=== PATIENT | female | born 1930 | race Caucasian/White ===

== ENCOUNTER 2016-12-12 09:20 | Emergency (ER) | payer MEDICARE, BC ==
[2016-12-12 09:32] VITALS: RESP 20
[2016-12-12] MEDS ORDERED: SODIUM CHLORIDE 0.9% 500 ML IV STA (10:01)
--- NOTE | 2016-12-12 10:26 | ED ---
Abdominal Pain HPI - General Chief Complaint: Abdominal Pain Stated Complaint: dizziness Time Seen by Provider: 12/12/16 09:53 Source: patient, RN notes reviewed Mode of arrival: wheelchair Limitations: no limitations - History of Present Illness Initial Comments: 86-year-old female presents emergency Department with vague complaints. Patient states that she just does not feel right. She states that she cannot tell me what exactly is wrong. She states her stomach is upset in that she's had some chest pain but states not active chest pain. Patient states that she has no shortness of breath. She states she does feel lightheaded. Patient denies blurred vision, focal weakness, pain, trauma. Patient states that she called her doctor who told her to come here for evaluation. - Related Data Home Medications Medication Instructions Recorded Confirmed Aspirin 81 mg PO HS 10/29/14 12/12/16 Levothyroxine Sodium [Synthroid] 50 mcg PO DAILY 10/29/14 12/12/16 Omeprazole 40 mg PO AC-BRKFST 10/29/14 12/12/16 amLODIPine BESYLATE [Norvasc] 5 mg PO DAILY 10/29/14 12/12/16 Allergies Allergy/AdvReac Type Severity Reaction Status Date / Time Penicillins Allergy Unknown Verified 12/12/16 09:59 Sulfa (Sulfonamide Allergy Rash/Hives Verified 12/12/16 09:59 Antibiotics) Review of Systems ROS Statement: Those systems with pertinent positive or pertinent negative responses have been documented in the HPI. ROS Other: All systems not noted in ROS Statement are negative. Past Medical History Past Medical History: Hypertension Additional Past Medical History / Comment(s): breast ca History of Any Multi-Drug Resistant Organisms: None Reported Additional Past Surgical History / Comment(s): right mastectomy Past Psychological History: No Psychological Hx Reported Smoking Status: Never smoker Past Alcohol Use History: None Reported Past Drug Use History: None Reported General Exam Limitations: no limitations General appearance: alert, in no apparent distress Head exam: Present: atraumatic, normocephalic, normal inspection Eye exam: Present: normal appearance, PERRL, EOMI. Absent: scleral icterus, conjunctival injection, periorbital swelling ENT exam: Present: normal exam, normal oropharynx, mucous membranes moist, TM's normal bilaterally, normal external ear exam Neck exam: Present: normal inspection, full ROM. Absent: tenderness, meningismus, lymphadenopathy Respiratory exam: Present: normal lung sounds bilaterally. Absent: respiratory distress, wheezes, rales, rhonchi, stridor Cardiovascular Exam: Present: regular rate, normal rhythm, normal heart sounds. Absent: systolic murmur, diastolic murmur, rubs, gallop, clicks GI/Abdominal exam: Present: soft, normal bowel sounds. Absent: distended, tenderness, guarding, rebound, rigid Neurological exam: Present: alert, oriented X3, CN II-XII intact Skin exam: Present: warm, dry, intact, normal color. Absent: rash Course Vital Signs 12/12/16 09:28 Temperature 97 F L Pulse Rate 84 Respiratory 20 Rate Blood Pressure 148/70 O2 Sat by Pulse 98 Oximetry Medical Decision Making - Medical Decision Making 86-year-old female presented for vague symptoms states that she just does not feel right. CT, x-ray, EKG, lab work all within normal limits. Patient may be coming down with a viral illness or possible mild vertigo. We did discuss close follow-up and return parameters. Patient family agreed to plan. - Lab Data Result diagrams: 12/12/16 10:14 12/12/16 10:14 Lab Results 12/12/16 12/12/16 12/12/16 Range/Units 10:14 10:14 10:14 WBC 5.7 (3.8-10.6) k/uL RBC 4.22 (3.80-5.40) m/uL Hgb 12.8 (11.4-16.0) gm/dL Hct 38.0 (34.0-46.0) % MCV 90.0 (80.0-100.0) fL MCH 30.3 (25.0-35.0) pg MCHC 33.7 (31.0-37.0) g/dL RDW 12.7 (11.5-15.5) % Plt Count 205 (150-450) k/uL Neutrophils % 80 % Lymphocytes % 13 % Monocytes % 4 % Eosinophils % 1 % Basophils % 1 % Neutrophils # 4.6 (1.3-7.7) k/uL Lymphocytes # 0.7 L (1.0-4.8) k/uL Monocytes # 0.3 (0-1.0) k/uL Eosinophils # 0.1 (0-0.7) k/uL Basophils # 0.0 (0-0.2) k/uL PT (9.0-12.0) sec INR (<1.1) APTT (22.0-30.0) sec Sodium 134 L (137-145) mmol/L Potassium 4.1 (3.5-5.1) mmol/L Chloride 95 L (98-107) mmol/L Carbon Dioxide 28 (22-30) mmol/L Anion Gap 11 mmol/L BUN 17 (7-17) mg/dL Creatinine 0.80 (0.52-1.04) mg/dL Est GFR (MDRD) Af Amer >60 (>60 ml/min/1.73 sqM) Est GFR (MDRD) Non-Af >60 (>60 ml/min/1.73 sqM) Glucose 143 H (74-99) mg/dL Calcium 9.2 (8.4-10.2) mg/dL Magnesium 1.7 (1.6-2.3) mg/dL Total Bilirubin 0.6 (0.2-1.3) mg/dL AST 21 (14-36) U/L ALT 26 (9-52) U/L Alkaline Phosphatase 71 (38-126) U/L Total Creatine Kinase 62 (30-135) U/L CK-MB (CK-2) 1.6 (0.0-2.4) ng/mL CK-MB (CK-2) Rel Index 2.6 Troponin I <0.012 (0.000-0.034) ng/mL Total Protein 7.4 (6.3-8.2) g/dL Albumin 4.1 (3.5-5.0) g/dL 12/12/16 Range/Units 10:14 WBC (3.8-10.6) k/uL RBC (3.80-5.40) m/uL Hgb (11.4-16.0) gm/dL Hct (34.0-46.0) % MCV (80.0-100.0) fL MCH (25.0-35.0) pg MCHC (31.0-37.0) g/dL RDW (11.5-15.5) % Plt Count (150-450) k/uL Neutrophils % % Lymphocytes % % Monocytes % % Eosinophils % % Basophils % % Neutrophils # (1.3-7.7) k/uL Lymphocytes # (1.0-4.8) k/uL Monocytes # (0-1.0) k/uL Eosinophils # (0-0.7) k/uL Basophils # (0-0.2) k/uL PT 10.9 (9.0-12.0) sec INR 1.1 (<1.1) APTT 25.7 (22.0-30.0) sec Sodium (137-145) mmol/L Potassium (3.5-5.1) mmol/L Chloride (98-107) mmol/L Carbon Dioxide (22-30) mmol/L Anion Gap mmol/L BUN (7-17) mg/dL Creatinine (0.52-1.04) mg/dL Est GFR (MDRD) Af Amer (>60 ml/min/1.73 sqM) Est GFR (MDRD) Non-Af (>60 ml/min/1.73 sqM) Glucose (74-99) mg/dL Calcium (8.4-10.2) mg/dL Magnesium (1.6-2.3) mg/dL Total Bilirubin (0.2-1.3) mg/dL AST (14-36) U/L ALT (9-52) U/L Alkaline Phosphatase (38-126) U/L Total Creatine Kinase (30-135) U/L CK-MB (CK-2) (0.0-2.4) ng/mL CK-MB (CK-2) Rel Index Troponin I (0.000-0.034) ng/mL Total Protein (6.3-8.2) g/dL Albumin (3.5-5.0) g/dL 12/12/16 11:33 EKG performed at 10:09 normal sinus rhythm with a rate of 73 PA interval 134, QRS duration 92, QTC is QTC 382/420 Disposition Clinical Impression: Malaise, Fatigue Disposition: HOME SELF-CARE Condition: Stable Instructions: Fatigue (ED) Additional Instructions: Please return to the Emergency Department if symptoms worsen or any other concerns. Time of Disposition: 11:35
[2016-12-12 10:42] LABS: Basophils % (A) 1 %; CH 30.3; CHCM 33.7; Eosinophils # (A) 0.1 k/uL (0-0.7); Eosinophils % (A) 1 %; HDW 2.36; HGB 12.8 gm/dL (11.4-16.0); Luc # (Auto) 0.06; Luc % (Auto) 1; Lymphocytes # (A) 0.7 k/uL (1.0-4.8); Lymphocytes % (A) 13 %; MCH 30.3 pg (25.0-35.0); MCHC 33.7 g/dL (31.0-37.0); Mean Platelet Volume 7.2; Monocytes # (A) 0.3 k/uL (0-1.0); Monocytes % (A) 4 %; Neutrophils # (A) 4.6 k/uL (1.3-7.7); Neutrophils % (A) 80 %; RBC 4.22 m/uL (3.80-5.40); RDW 12.7 % (11.5-15.5); WBC 5.7 k/uL (3.8-10.6); WBC (Perox) 6.11
[2016-12-12 10:52] LABS: INR 1.1 (<1.1); Partial Thromboplastin Time 25.7 sec (22.0-30.0); Prothrombin Time 10.9 sec (9.0-12.0)
[2016-12-12 10:53] LABS: ALT 26 U/L (9-52); AST 21 U/L (14-36); Alkaline Phosphatase 71 U/L (38-126); Anion Gap 11 mmol/L; Blood Urea Nitrogen 17 mg/dL (7-17); Calcium 9.2 mg/dL (8.4-10.2); Carbon Dioxide 28 mmol/L (22-30); Chloride 95 mmol/L (98-107); Glucose 143 mg/dL (74-99); Magnesium 1.7 mg/dL (1.6-2.3); Non-African American GFR(MDRD) >60 (>60 ml/min/1.73 sqM); Potassium 4.1 mmol/L (3.5-5.1); Sodium 134 mmol/L (137-145); Total Bilirubin 0.6 mg/dL (0.2-1.3); Total Protein 7.4 g/dL (6.3-8.2)
[2016-12-12 11:08] LABS: Creatine Kinase 62 U/L (30-135)
--- NOTE | 2016-12-12 11:08 | CT ---
EXAMINATION TYPE: CT brain wo con DATE OF EXAM: 12/12/2016 10:59 AM COMPARISON: 09/11/2013 INDICATION: Dizziness, weakness DLP: 926.4 mGycm, Automated exposure control for dose reduction was used. CONTRAST: None CT of the brain is performed utilizing 3 mm thick sections through the posterior fossa and 3 mm thick sections through the remaining calvarium. Study is performed within 24 hours of arrival to the hosp ital. No abnormal hyperdensity is present to suggest an acute intracranial hemorrhage. No mass lesion is evident. No acute infarcts are evident. There is periventricular white matter hypodensity which is patchy to c onfluent. Findings can be compatible with chronic white matter ischemic changes. Ventricles and sulci are prominent for the patient age. Paranasal sinuses and mastoid air cells within the [id number] are clear. IMPRESSIONS: 1. Stable age-related atrophy. 2. Increasing chronic white matter ischemic changes from 2012.
[2016-12-12 11:21] LABS: Creatine Kinase MB 1.6 ng/mL (0.0-2.4); Troponin I <0.012 ng/mL (0.000-0.034)
--- NOTE | 2016-12-12 11:25 | XR ---
EXAMINATION TYPE: XR chest 2V DATE OF EXAM: 12/12/2016 11:13 AM COMPARISON: 10/05/16 HISTORY: Shortness of breath TECHNIQUE: Frontal and lateral views of the chest are obtained. FINDINGS: Scattered senescent parenchymal changes noted. Hyperinflation compatible with COPD. No evidence for infiltrate. No evidence for atelectasis. Heart size is stable. Mediastinal structures are stable and grossly unremarkable. No evidence for hilar prominence. Degenerative changes dorsal spine. IMPRESSION: 1. No evidence for acute pulmonary disease.
[2016-12-12 11:43] VITALS: BP 136/78; PULSE 70; TEMP 98.2
[2016-12-12 11:47] LABS: Appearance,Urine Clear (Clear); Bilirubin,Urine Negative (Negative); Glucose,Urine (UA) Negative (Negative); Ketones,Urine Negative (Negative); Leukocyte Esterase,Urine Negative (Negative); Nitrite,Urine Negative (Negative); PH, Urine 6.5 (5.0-8.0); Protein,Urine Negative (Negative); Specific Gravity,Urine 1.003 (1.001-1.035); UA Billing (MACRO vs. MICRO) CHEM; Urobilinogen,Urine <2.0 mg/dL (<2.0)
== END 2016-12-12 11:43 | disposition home or self-care (01) ==
LOC: EC 09:20
DX: R53.81 Other malaise (principal); R53.83 Other fatigue; R07.9 Chest pain, unspecified; R42 Dizziness and giddiness; I10 Essential (primary) hypertension; Z90.11 Acquired absence of right breast and nipple; Z79.899 Other long term (current) drug therapy; Z79.82 Long term (current) use of aspirin; Z88.2 Allergy status to sulfonamides; Z88.0 Allergy status to penicillin
CPT/HCPCS: 36415; 70450; 71020; 80053; 81003; 82550; 82553; 83735; 84484; 85025; 85610; 85730; 93005; 96360; 99284

== ENCOUNTER → 2017-01-13 | Outpatient (CLI) | payer MEDICARE, BC ==
--- NOTE | 2017-01-13 15:43 | XR ---
EXAMINATION TYPE: XR chest 2V DATE OF EXAM: 01/13/2017 3:26 PM COMPARISON: 12/12/2016 TECHNIQUE: PA and lateral views submitted. HISTORY: Cough FINDINGS: The lungs are clear and there is no pneumothorax, pleural effusion, or focal pneumonia. Hyperinflat ion suggests COPD. Coarsened interstitium noted. Findings stable. IMPRESSION: 1. No acute process. Correlate for COPD and chronic interstitial lung disease.
== END ==
LOC: RADXRMAIN 15:00
PROVIDERS: ATTEND Internal Medicine
DX: R05 Cough (principal)
CPT/HCPCS: 71020

== ENCOUNTER 2017-04-09 15:35 | Inpatient (IN) | payer MEDICARE, BC ==
[2017-04-09] MEDS ORDERED: ACETAMINOPHEN TAB 500 MG TAB PO STA (16:10)
--- NOTE | 2017-04-09 16:27 | XR ---
EXAMINATION TYPE: XR Hip LT and AP Pelvis DATE OF EXAM ORDERED: 04/09/2017 4:20 PM HISTORY: Pain. COMPARISON: None. FINDINGS: The bones are osteopenic likely on the basis of osteoporosis. There is a subcapital fractu re of the left hip with minimal angulation and foreshortening. No other acute fractures are seen. The re is degenerative change in the lower lumbar spine. IMPRESSION: SUBCAPITAL FRACTURE OF THE LEFT HIP.
[2017-04-09] MEDS ORDERED: SODIUM CHLORIDE 0.9% 1,000 ML IV STA (16:30)
--- NOTE | 2017-04-09 16:33 | ED ---
Fall HPI - General Chief Complaint: Fall Stated Complaint: Fall Time Seen by Provider: 04/09/17 16:03 Source: patient, RN notes reviewed Mode of arrival: wheelchair - History of Present Illness Initial Comments: 87 yo female presents to the emergency Department chief complaint of left hip pain. Patient states she tripped on the sidewalk and fell onto her left hip. Patient states she was able to get up by herself over she's having increased left hip pain. Patient states the pain is moderate. Patient states it's worse to movement. Patient states she did not hit her head there is no loss of consciousness. Patient denies any other injuries from the fall.Patient denies any recent fever, chills, shortness of breath, chest pain, back pain, abdominal pain, nausea vomiting, numbness or tingling, dysuria or hematuria, constipation or diarrhea, headaches or visual changes, or any other current symptoms. - Related Data Home Medications Medication Instructions Recorded Confirmed Aspirin 81 mg PO DAILY 10/29/14 04/09/17 Levothyroxine Sodium [Synthroid] 50 mcg PO DAILY 10/29/14 04/09/17 Omeprazole 40 mg PO AC-BRKFST 10/29/14 04/09/17 amLODIPine BESYLATE [Norvasc] 5 mg PO DAILY 10/29/14 04/09/17 Allergies Allergy/AdvReac Type Severity Reaction Status Date / Time Penicillins Allergy Unknown Verified 04/09/17 16:39 Sulfa (Sulfonamide Allergy Rash/Hives Verified 04/09/17 16:39 Antibiotics) Review of Systems ROS Statement: Those systems with pertinent positive or pertinent negative responses have been documented in the HPI. ROS Other: All systems not noted in ROS Statement are negative. Past Medical History Past Medical History: Hypertension Additional Past Medical History / Comment(s): breast ca History of Any Multi-Drug Resistant Organisms: None Reported Additional Past Surgical History / Comment(s): right mastectomy Past Psychological History: No Psychological Hx Reported Smoking Status: Never smoker Past Alcohol Use History: None Reported Past Drug Use History: None Reported General Exam - General Exam Comments Initial Comments: General: The patient is awake and alert, in no distress, and does not appear acutely ill. Neck: The neck is supple, there is no tenderness. Cardiovascular: There is a regular rate and rhythm. No murmur, rub or gallop is appreciated. Respiratory: Lungs are clear to auscultation, respirations are non-labored, breath sounds are equal. No wheezes, stridor, rales, or rhonchi. Musculoskeletal: Patient With a specific left upper extremity. Left knee and left ankle. Patient says the lateral aspect of the left hip with limited range of motion. Neurological: CN II-XII intact, There are no obvious motor or sensory deficits. Coordination appears grossly intact. Speech is normal. Skin: Skin is warm and dry and no rashes or lesions are noted. Psychiatric: Normal mood and affect. Limitations: physical limitation Course Vital Signs 04/09/17 15:47 Temperature 98.0 F Pulse Rate 91 Respiratory 20 Rate Blood Pressure 159/76 O2 Sat by Pulse 95 Oximetry Medical Decision Making - Medical Decision Making 87-year-old female presents with what appears to be a left hip fracture on x- ray. Patient has seen Dr. Mancilla in the past. At this time any Weber was contacted regarding the case today due to except the admission to Dr. Flores. Like her is to be consulted for medical clearance. Patient is in agreement with the plan. - Radiology Data Radiology results: report reviewed, image reviewed Disposition Clinical Impression: Fall, Subcapital fracture of left hip, Abrasion of left elbow Disposition: ADMITTED IP TO THIS [facility] Condition: Stable Referrals: Phillip Parrish MD [Primary Care Provider] - 1-2 days Time of Disposition: 17:13 Decision Date: 04/09/17 Decision Time: 17:13
--- NOTE | 2017-04-09 16:37 | XR ---
EXAMINATION TYPE: XR chest 1V DATE OF EXAM: 04/09/2017 4:25 PM COMPARISON: 01/13/2017 HISTORY: Cough TECHNIQUE: Single frontal view of the chest is obtained. FINDINGS: There is no heart failure nor confluent pneumonic infiltrate. There are no hilar masses. C ostophrenic angles are clear. There is slight coarsening of interstitial markings. IMPRESSION: Mild pulmonary fibrotic changes. No active cardiopulmonary disease. No change.
[2017-04-09] MEDS ORDERED: ONDANSETRON 4 MG/2 ML VIAL IVP PRN (17:13)
[2017-04-09] MEDS ORDERED: NALOXONE 0.4 MG/ML 1 ML VIAL IV PRN (17:13)
[2017-04-09 17:22] LABS: Basophils % (A) 0 %; CH 30.9; CHCM 33.3; Eosinophils # (A) 0.1 k/uL (0-0.7); Eosinophils % (A) 1 %; HCT 37.7 % (34.0-46.0); HDW 2.27; HGB 12.9 gm/dL (11.4-16.0); Luc # (Auto) 0.08; Luc % (Auto) 1; Lymphocytes # (A) 0.8 k/uL (1.0-4.8); Lymphocytes % (A) 10 %; MCH 31.9 pg (25.0-35.0); MCHC 34.2 g/dL (31.0-37.0); MCV 93.1 fL (80.0-100.0); Mean Platelet Volume 6.4; Monocytes # (A) 0.2 k/uL (0-1.0); Monocytes % (A) 3 %; Neutrophils # (A) 6.8 k/uL (1.3-7.7); Neutrophils % (A) 85 %; RBC 4.05 m/uL (3.80-5.40); RDW 13.4 % (11.5-15.5); WBC (Perox) 8.44
[2017-04-09 17:30] LABS: Partial Thromboplastin Time 22.6 sec (22.0-30.0); Prothrombin Time 10.5 sec (9.0-12.0)
[2017-04-09 17:35] LABS: ALT 32 U/L (9-52); AST 29 U/L (14-36); Alkaline Phosphatase 78 U/L (38-126); Anion Gap 9 mmol/L; Blood Urea Nitrogen 26 mg/dL (7-17); Calcium 9.7 mg/dL (8.4-10.2); Carbon Dioxide 28 mmol/L (22-30); Chloride 97 mmol/L (98-107); Glucose 123 mg/dL (74-99); Non-African American GFR(MDRD) 55 (>60 ml/min/1.73 sqM); Sodium 134 mmol/L (137-145); Total Bilirubin 0.7 mg/dL (0.2-1.3); Total Protein 7.8 g/dL (6.3-8.2)
[2017-04-09] MEDS: HYDROcodone/APAP 5-325MG 1 EACH TAB PO PRN ×2 (18:21→22:39)
[2017-04-09 23:00] VITALS: BMI 17.8
[2017-04-10] MEDS: MORPHINE SULFATE 4 MG/ML SYRINGE IV PRN (03:05)
[2017-04-10] MEDS: LEVOTHYROXINE 50 MCG TAB PO SCH (05:25)
[2017-04-10] MEDS: amLODIPine 5 MG TAB PO SCH (07:56)
[2017-04-10] MEDS: PANTOPRAZOLE 40 MG TABLET PO SCH (07:56)
--- NOTE | 2017-04-10 08:29 | P.HPOR ---
History of Present Illness H&P Date: 04/10/17 Chief Complaint: Left hip pain This is an 87-year-old female who was admitted through the emergency department on 04/09/2017 after falling and sustaining injury to her left hip. On exam and x-ray in the emergency department she is found to have a subcapital fracture of the left hip. She is admitted to our service for surgical intervention and care. Past Medical History Past Medical History: Hypertension Additional Past Medical History / Comment(s): breast ca History of Any Multi-Drug Resistant Organisms: None Reported Past Surgical History: Appendectomy Additional Past Surgical History / Comment(s): right mastectomy Additional Past Anesthesia/Blood Transfusion Reaction / Comment(s): has a difficult time coming awake after sx Past Psychological History: No Psychological Hx Reported Smoking Status: Never smoker Past Alcohol Use History: None Reported Past Drug Use History: None Reported Medications and Allergies Home Medications Medication Instructions Recorded Confirmed Type Aspirin 81 mg PO DAILY 10/29/14 04/09/17 History Levothyroxine Sodium [Synthroid] 50 mcg PO DAILY 10/29/14 04/09/17 History Omeprazole 40 mg PO AC-BRKFST 10/29/14 04/09/17 History amLODIPine BESYLATE [Norvasc] 5 mg PO DAILY 10/29/14 04/09/17 History Allergies Allergy/AdvReac Type Severity Reaction Status Date / Time Penicillins Allergy Unknown Verified 04/09/17 16:39 Sulfa (Sulfonamide Allergy Rash/Hives Verified 04/09/17 16:39 Antibiotics) Physical Examination This is a pleasant 87-year-old female in no acute distress. She is alert and oriented 3 exam of the head and neck reveal no obvious deformities. Patient has full cervical spine motion without difficulty or pain. There is no pain on palpation about the cervical spine or paraspinal musculature. Exam of the upper extremities reveals no areas of swelling or deformity. She has full shoulder, elbow, wrist and finger motion without difficulty or pain. There is a small abrasion over the left elbow. Neurovascular status to the upper extremities is intact. Exam the lower extremities reveals mild shortening and external rotation of the left hip. Patient has full range of motion of the foot and ankle without difficulty or pain. There is pain with any motion to the left hip. Neurovascular status to the lower extremities is intact. Results X-rays of the pelvis and left hip reveal an impacted femoral neck fracture and mild valgus. No other fractures identified. - Labs Labs: Abnormal Lab Results - Last 24 Hours (Table) 04/09/17 04/09/17 Range/Units 17:10 17:10 Lymphocytes # 0.8 L (1.0-4.8) k/uL Sodium 134 L (137-145) mmol/L Chloride 97 L (98-107) mmol/L BUN 26 H (7-17) mg/dL Glucose 123 H (74-99) mg/dL H & H 04/09/17 Range/Units 17:10 Hgb 12.9 (11.4-16.0) gm/dL Hct 37.7 (34.0-46.0) % Coagulation 04/09/17 Range/Units 17:10 INR 1.0 (<1.1) Result Diagrams: 04/09/17 17:10 04/09/17 17:10 Assessment and Plan (1) Abrasion of left elbow Status: Acute (2) Fall Status: Acute (3) Subcapital fracture of left hip Status: Acute Plan: The clinical and x-ray findings are discussed the patient. It is recommended that she undergo hemiarthroplasty of the left hip. The surgical procedures discussed in detail including possible risks and outcomes of surgery. She will most likely will be a candidate for inpatient rehab postoperatively. After discussion and consideration patient elects to proceed with hemiarthroplasty left hip.
[2017-04-10] MEDS: SODIUM CHLORIDE 0.9% 1,000 ML IV SCH ×2 (11:06→23:09)
[2017-04-10 12:01] LABS: Appearance,Urine Clear (Clear); Bilirubin,Urine Negative (Negative); Glucose,Urine (UA) Negative (Negative); Ketones,Urine Negative (Negative); Leukocyte Esterase,Urine Negative (Negative); Nitrite,Urine Negative (Negative); PH, Urine 6.5 (5.0-8.0); Protein,Urine Trace (Negative); Specific Gravity,Urine 1.012 (1.001-1.035); UA Billing (MACRO vs. MICRO) CHEM; Urobilinogen,Urine <2.0 mg/dL (<2.0)
[2017-04-10] MEDS ORDERED: CYANOCOBALAMIN 1,000 MCG/ML 1 ML VIAL IM ONE (15:00)
[2017-04-10] MEDS: HYDROcodone/APAP 5-325MG 1 EACH TAB PO PRN ×2 (15:14→22:01)
--- NOTE | 2017-04-10 17:27 | P.CONS ---
History of Present Illness - Reason for Consult Consult date: 04/10/17 Medical management Requesting physician: Serg Wyman - Chief Complaint Left hip fracture after a fall - History of Present Illness Is a pleasant 87-year-old lady patient of Dr. Parrish. She has underlying history of hypertension hypothyroidism with decreased hearing, who was previously well independent, lives at home on home, admitted emergency room after she tripped and had fallen in the sidewalk, patient was returning up pull we can when she tripped and fell the sidewalk landing on her left side. She sustained a left subcapital fracture involving left hip, minimal angulation and foreshortening no other pelvic structures noted We've requested EKG for perioperative clearance, EKG shows bundle branch block and inferior T-wave changes, BNP troponins were requested, imaging studies with chest x-ray showed pulmonary fibrotic changes with no active cardiopulmonary disease no change from previous patient clinically is asymptomatic with regards to heart, however this EKG is new compared to November 2016 in view of this, we' ve requested cardiology for preoperative clearance, were anticipating surgery on 04/11/2017 left hemiarthroplasty is recommended Review of Systems Constitutional: Reports as per HPI, Denies anorexia, Denies chills, Denies chronic headaches, Denies chronic pain, Denies daytime sleepiness, Denies fatigue, Denies fever, Denies lethargy, Denies malaise, Denies night sweats, Denies poor appetite, Denies sweats, Denies weakness, Denies weight gain, Denies weight loss Ears, nose, mouth and throat: Reports as per HPI, Denies ant. neck pain, Denies bleeding gums, Denies dental pain, Denies dysphagia, Denies epistaxis, Denies headache, Denies hoarseness, Denies mouth pain, Denies nasal congestion, Denies nasal discharge, Denies neck fullness/pressure, Denies neck lump, Denies nose pain, Denies odynophagia, Denies post-nasal drip, Denies sinus pain, Denies sinus pressure, Denies swelling in mouth, Denies swelling in throat, Denies sore throat, Denies vertigo, Denies voice changes Cardiovascular: Reports as per HPI, Denies chest pain, Denies claudication, Denies decreased exercise tolerance, Denies dyspnea on exertion, Denies edema, Denies high blood pressure, Denies irregular heart beat, Denies leg edema, Denies lightheadedness, Denies orthopnea, Denies palpitations, Denies paroxysmal nocturnal dyspnea, Denies phlebitis, Denies rapid heart beat, Denies shortness of breath, Denies syncope Respiratory: Reports as per HPI, Denies congestion, Denies cough, Denies cough with sputum, Denies dyspnea, Denies excessive sputum, Denies hemoptysis, Denies home oxygen, Denies pain, Denies pain on inspiration, Denies pleurisy, Denies respiratory infections, Denies sleep apnea, Denies snoring, Denies wheezing Gastrointestinal: Reports as per HPI, Denies abdominal pain, Denies belching, Denies bloating, Denies BRBPR, Denies change in bowel habits, Denies coffee ground emesis, Denies constipation, Denies diarrhea, Denies dyspepsia, Denies early satiety, Denies excessive gas, Denies heartburn, Denies hematemesis, Denies hematochezia, Denies indigestion, Denies jaundice, Denies lactose intolerance, Denies loss of appetite, Denies melena, Denies nausea, Denies vomiting Genitourinary: Reports as per HPI, Denies abnormal vaginal bleeding, Denies decreased libido, Denies difficulty conceiving, Denies difficulty voiding, Denies dysmenorrhea, Denies dyspareunia, Denies dysuria, Denies flank pain, Denies genital sores, Denies hematuria, Denies hot flashes, Denies incomplete emptying, Denies kidney stones, Denies menorrhagia, Denies mixed incontinence, Denies nocturia, Denies pelvic pain, Denies post void dribbling, Denies , Denies prolapse symptoms, Denies stress incontinence, Denies urge incontinence , Denies urgency, Denies urinary frequency, Denies vaginal discharge, Denies vaginal dryness, Denies vaginal itching, Denies vaginal odor Menstruation: Reports as per HPI, Denies amenorrhea, Denies amenorrhea on BC, Denies currently menstrual, Denies cycle < 21 days, Denies cycle > 35 days, Denies cycle variable, Denies menses 1-7 days, Denies menses 8 or > days, Denies menses variable, Denies period heavy, Denies period light, Denies period normal, Denies period spotting, Denies post hysterectomy, Denies postmenopausal , Denies premenarcheal Musculoskeletal: Reports as per HPI, Reports fractures, Reports gait dysfunction , Reports limitation of motion, Reports shooting leg pain Integumentary: Reports as per HPI, Denies acne, Denies boils, Denies brittle nails, Denies change in hair/nails, Denies color changes, Denies darkening of skin, Denies depigmentation, Denies dryness, Denies foot/leg ulcers, Denies growths, Denies hirsutism, Denies lesions, Denies onychomycosis, Denies pruritus , Denies rash, Denies sores, Denies striae, Denies unusual bruising, Denies wounds Neurological: Reports as per HPI, Denies aphasia, Denies ataxia, Denies balance difficulties, Denies burning pain, Denies change in mentation, Denies change in smell/taste, Denies change in speech, Denies confusion, Denies convulsions, Denies double vision, Denies gait dysfunction, Denies head injury, Denies headaches, Denies hearing difficulties, Denies lack of coordination, Denies loss of vision, Denies memory loss, Denies migraines, Denies motor disturbance, Denies numbness, Denies paralysis, Denies paresthesias, Denies seizures, Denies sensory deficit, Denies spasticity, Denies syncope, Denies tic, Denies tingling , Denies transient paralysis, Denies tremors, Denies vertigo, Denies weakness, Denies visual changes Psychiatric: Reports as per HPI, Denies anhedonia, Denies anxiety, Denies anxiety attacks, Denies change in appetite, Denies change in libido, Denies change in sleep habits, Denies confusion, Denies depression, Denies difficulty concentrating, Denies disorientation, Denies hallucinations, Denies hopelessness , Denies hypersomnia, Denies insomnia, Denies irritability, Denies memory loss, Denies mood swings, Denies paranoia, Denies sadness/tearfulness, Denies sleep disturbances, Denies suicidal ideation Endocrine: Reports as per HPI, Denies cold intolerance, Denies deepening of the voice, Denies excessive sweating, Denies excessive thirst, Denies fatigue, Denies flushing, Denies heat intolerance, Denies high blood sugars, Denies increase in ring/shoe/hat size, Denies low blood sugars, Denies nocturia, Denies palpitations, Denies polydipsia, Denies polyphagia, Denies polyuria, Denies proptosis, Denies recent glucocorticoid use, Denies thyroid mass, Denies weight change Hematologic/Lymphatic: Reports as per HPI, Denies easy bleeding, Denies easy bruising, Denies lymphadenopathy, Denies lymphedema, Denies thrombophilia Allergic/Immunologic: Reports as per HPI, Denies allergic rhinitis, Denies anaphylaxis, Denies angioedema, Denies gluten intolerance, Denies persistent infections, Denies seasonal allergies, Denies urticaria, Denies wheezing Past Medical History Past Medical History: Hypertension, Osteoarthritis (OA), Thyroid Disorder Additional Past Medical History / Comment(s): breast ca History of Any Multi-Drug Resistant Organisms: None Reported Past Surgical History: Appendectomy Additional Past Surgical History / Comment(s): right mastectomy Additional Past Anesthesia/Blood Transfusion Reaction / Comm: has a difficult time coming awake after sx Past Psychological History: No Psychological Hx Reported Smoking Status: Never smoker Past Alcohol Use History: None Reported Past Drug Use History: None Reported - Past Family History Father History Unknown: Yes (Ischemic bowel) Mother Family Medical History: No Reported History Brother(s) History Unknown: Yes (4 brothers, history off COPD heart disease, alcoholism, one brother with leukemia) Sister(s) History Unknown: Yes (6 sisters are one alive, has GI cancer, other for his has fractures of she processes CAD) Daughter(s) History Unknown: Yes (No children sawDrs.) Medications and Allergies Home Medications Medication Instructions Recorded Confirmed Type Aspirin 81 mg PO DAILY 10/29/14 04/09/17 History Levothyroxine Sodium [Synthroid] 50 mcg PO DAILY 10/29/14 04/09/17 History Omeprazole 40 mg PO AC-BRKFST 10/29/14 04/09/17 History amLODIPine BESYLATE [Norvasc] 5 mg PO DAILY 10/29/14 04/09/17 History Allergies Allergy/AdvReac Type Severity Reaction Status Date / Time Penicillins Allergy Unknown Verified 04/09/17 16:39 Sulfa (Sulfonamide Allergy Rash/Hives Verified 04/09/17 16:39 Antibiotics) Physical Exam Vitals: Vital Signs Temp Pulse Pulse Resp BP BP BP 04/10/17 15:44 80 16 04/10/17 15:00 98.2 F 80 16 153/73 04/10/17 08:00 75 16 04/10/17 07:00 98.6 F 75 16 165/76 04/10/17 02:33 98.1 F 71 16 144/73 04/09/17 20:00 97.6 F 20 147/83 04/09/17 18:44 98.1 F 91 18 129/75 04/09/17 18:12 97.2 F L 92 17 175/81 Pulse Ox 04/10/17 15:44 04/10/17 15:00 94 L 04/10/17 08:00 04/10/17 07:00 96 04/10/17 02:33 95 04/09/17 20:00 92 L 04/09/17 18:44 97 04/09/17 18:12 94 L Intake and Output 04/10/17 04/10/17 04/10/17 06:59 14:59 22:59 Intake Total 880 Output Total 650 500 Balance 230 -500 Intake: Intake, IV Titration 880 Amount Sodium Chloride 0.9% 1, 880 000 ml @ 80 mls/hr IV . [id number] STA Rx#:[id number] Output: Urine 650 500 Other: Voiding Method Indwelling Catheter Indwelling Catheter Weight 50.126 kg Patient Weight 04/11/17 06:59 Weight 50.126 kg - Constitutional General appearance: cooperative, no acute distress, thin - EENT Eyes: anicteric sclerae, edentulous, EOMI, PERRLA, normal appearance ENT: hearing grossly normal, NA/AT, normal oropharynx - Neck Neck: no lymphadenopathy, normal ROM, no other, no rigidity, no stridor, no thyromegaly - Respiratory Respiratory: bilateral: CTA, negative: dullness, rales, rhonchi, wheezing - Cardiovascular Rhythm: regular Heart sounds: normal: S1, S2 Abnormal Heart Sounds: no systolic murmur, no diastolic murmur, no rub, no S3 Gallop, no S4 Gallop, no click, no other - Gastrointestinal General gastrointestinal: normal bowel sounds, soft - Integumentary Integumentary: normal, normal turgor - Neurologic Neurologic: CNII-XII intact - Musculoskeletal Musculoskeletal: strength equal bilaterally - Psychiatric Psychiatric: A&O x's 3, appropriate affect, intact judgment & insight Results CBC & Chem 7: 04/09/17 17:10 04/09/17 17:10 Labs: Abnormal Lab Results - Last 24 Hours (Table) 04/09/17 04/09/17 04/10/17 Range/Units 17:10 17:10 10:15 Lymphocytes # 0.8 L (1.0-4.8) k/uL Sodium 134 L (137-145) mmol/L Chloride 97 L (98-107) mmol/L BUN 26 H (7-17) mg/dL Glucose 123 H (74-99) mg/dL Troponin I (0.000-0.034) ng/mL Urine Protein Trace H (Negative) 04/10/17 Range/Units 15:44 Lymphocytes # (1.0-4.8) k/uL Sodium (137-145) mmol/L Chloride (98-107) mmol/L BUN (7-17) mg/dL Glucose (74-99) mg/dL Troponin I 0.105 H* (0.000-0.034) ng/mL Urine Protein (Negative) Laboratory Results WBC 8.0 k/uL (3.8-10.6) 04/09/17 17:10 RBC 4.05 m/uL (3.80-5.40) 04/09/17 17:10 Hgb 12.9 gm/dL (11.4-16.0) 04/09/17 17:10 Hct 37.7 % (34.0-46.0) 04/09/17 17:10 MCV 93.1 fL (80.0-100.0) 04/09/17 17:10 MCH 31.9 pg (25.0-35.0) 04/09/17 17:10 MCHC 34.2 g/dL (31.0-37.0) 04/09/17 17:10 RDW 13.4 % (11.5-15.5) 04/09/17 17:10 Plt Count 223 k/uL (150-450) 04/09/17 17:10 Neutrophils % 85 % 04/09/17 17:10 Lymphocytes % 10 % 04/09/17 17:10 Monocytes % 3 % 04/09/17 17:10 Eosinophils % 1 % 04/09/17 17:10 Basophils % 0 % 04/09/17 17:10 Neutrophils # 6.8 k/uL (1.3-7.7) 04/09/17 17:10 Lymphocytes # 0.8 k/uL (1.0-4.8) L 04/09/17 17:10 Monocytes # 0.2 k/uL (0-1.0) 04/09/17 17:10 Eosinophils # 0.1 k/uL (0-0.7) 04/09/17 17:10 Basophils # 0.0 k/uL (0-0.2) 04/09/17 17:10 PT 10.5 sec (9.0-12.0) 04/09/17 17:10 INR 1.0 (<1.1) 04/09/17 17:10 APTT 22.6 sec (22.0-30.0) 04/09/17 17:10 Sodium 134 mmol/L (137-145) L 04/09/17 17:10 Potassium 4.0 mmol/L (3.5-5.1) 04/09/17 17:10 Chloride 97 mmol/L (98-107) L 04/09/17 17:10 Carbon Dioxide 28 mmol/L (22-30) 04/09/17 17:10 Anion Gap 9 mmol/L 04/09/17 17:10 BUN 26 mg/dL (7-17) H 04/09/17 17:10 Creatinine 0.95 mg/dL (0.52-1.04) 04/09/17 17:10 Est GFR (MDRD) Af Amer >60 (>60 ml/min/1.73 sqM) 04/09/17 17:10 Est GFR (MDRD) Non-Af 55 (>60 ml/min/1.73 sqM) 04/09/17 17:10 Glucose 123 mg/dL (74-99) H 04/09/17 17:10 Calcium 9.7 mg/dL (8.4-10.2) 04/09/17 17:10 Total Bilirubin 0.7 mg/dL (0.2-1.3) 04/09/17 17:10 AST 29 U/L (14-36) 04/09/17 17:10 ALT 32 U/L (9-52) 04/09/17 17:10 Alkaline Phosphatase 78 U/L (38-126) 04/09/17 17:10 Creatine Kinase 82 U/L (30-135) 04/10/17 15:44 Troponin I 0.105 ng/mL (0.000-0.034) H* 04/10/17 15:44 NT-Pro-B Natriuret Pep 836 pg/mL 04/10/17 15:44 Total Protein 7.8 g/dL (6.3-8.2) 04/09/17 17:10 Albumin 4.5 g/dL (3.5-5.0) 04/09/17 17:10 Urine Color Light Yellow 04/10/17 10:15 Urine Appearance Clear (Clear) 04/10/17 10:15 Urine pH 6.5 (5.0-8.0) 04/10/17 10:15 Ur Specific [place] 1.012 (1.001-1.035) 04/10/17 10:15 Urine Protein Trace (Negative) H 04/10/17 10:15 Urine Glucose (UA) Negative (Negative) 04/10/17 10:15 Urine Ketones Negative (Negative) 04/10/17 10:15 Urine Blood Negative (Negative) 04/10/17 10:15 Urine Nitrite Negative (Negative) 04/10/17 10:15 Urine Bilirubin Negative (Negative) 04/10/17 10:15 Urine Urobilinogen <2.0 mg/dL (<2.0) 04/10/17 10:15 Ur Leukocyte Esterase Negative (Negative) 04/10/17 10:15 Blood Type O Positive 04/09/17 17:10 Blood Type Recheck No 04/09/17 17:10 Antibody Screen NEGATIVE 04/09/17 17:10 Spec Expiration Date 04/12/2017 - 85404/09/17 17:10 Assessment and Plan Plan: 1. Acute left subcapital hip fracture after traumatic fall, patient currently would require a left hemiarthroplasty, however in view off the abnormal EKG that was noted which is new compared to May 2017, T-wave inversions noted inferior leads, cardiology was requested along with troponins. BNP is normal, echo cardiogram was requested, should be a class 2-3 anesthesia classification risk, involving an orthopedic surgery, CPK would be a performed to evaluate for rhabdomyolysis. Urinalysis negative for any urinary tract infection, 2. Abnormal EKG with T-wave inversion inferior leads, new compared to previous chin Y 2016, cardiology was requested to see along with preoperative clearance 3. Hypertension currently stable on Norvasc 5 mg daily 4. Hypothyroidism on Synthroid 50 g daily 5. GI prophylaxis and DVT prophylaxis, heparin 5000 units every 12 which would be given and held 12 hours prior to surgery, patient's on Protonix maintenance 6. Discharge planning anticipate discharge to skilled ECF patient lives alone, patient will be needing physical therapy and OT postsurgery
[2017-04-10] MEDS: HEPARIN SODIUM,PORCINE 5,000 UNIT/ML 1 ML VIAL SQ SCH (20:41)
[2017-04-11] MEDS: MORPHINE SULFATE 4 MG/ML SYRINGE IV PRN ×5 (02:35→20:21)
[2017-04-11] MEDS: amLODIPine 5 MG TAB PO SCH (07:57)
[2017-04-11] MEDS: LEVOTHYROXINE 50 MCG TAB PO SCH (07:57)
[2017-04-11] MEDS: PANTOPRAZOLE 40 MG TABLET PO SCH (07:57)
[2017-04-11] MEDS: HEPARIN SODIUM,PORCINE 5,000 UNIT/ML 1 ML VIAL SQ SCH (07:58)
[2017-04-11] MEDS ORDERED: IV FLUID CONTINUATION 500 ML IV ONE (09:46)
--- NOTE | 2017-04-11 10:03 | CONS ---
DATE OF CONSULTATION: Mrs. Pratt is an 87-year-old female who is seen for preoperative evaluation. This patient's medical records reviewed. This patient came to the emergency room yesterday with a complaint of left hip pain. She tripped on the sidewalk and fell on her left hip. She did not lose consciousness. She was able to get up by herself. This patient has a history of hypertension and has been having intermittent episodes of chest pain, which may be suggestive of angina, but she has been treated medically. There is no previous history of myocardial infarction. Patient is physically active and functionally independent. There is no history of congestive cardiac failure. Denies any history of orthopnea or PND. There is no prior history of stroke or kidney problem. The EKG showed evidence of right bundle branch block with nonspecific T wave changes, which are unchanged from the previous EKG. The troponins were borderline elevated without any significant rise and fall. Past medical history includes a history of hypertension, right mastectomy. No history of smoking. Review of systems is otherwise unremarkable. Patient's home medications include aspirin, omeprazole, amlodipine 5 mg daily and Synthroid 50 mcg daily. Physical examination at present reveals an 87-year-old female who is alert and awake and does not appear to be in any acute distress. In the emergency room, patient's vital signs stable with oxygen saturation of 95%. The patient's blood pressure now is 145/78 mmHg, oxygen saturation is 95%. Head/ENT examination is negative. Neck is supple. There is no increase in jugular venous pressure. Both the carotid pulses are felt. There is no bruit. Chest is symmetrical. HEART: The PMI is not felt. First and second heart sounds are normal. There is no evidence of any murmur. Lungs are clinically clear to auscultation and percussion. Abdomen is soft. Liver and spleen are not enlarged. EXTREMITIES: Peripheral pulsations are 2+. EKG shows normal sinus rhythm with right bundle branch block and nonspecific T wave changes. EKG is unchanged from before. Electrolytes are normal. Patient's creatinine is 0.95. Random blood sugar was 123. Three sets of troponins are 0.105, 0.138 and 0.129. FINAL IMPRESSION: This patient is admitted with left hip pain. Patient has a history of hypertension. Clinically, there is no evidence of any overt congestive cardiac failure. Patient's EKG does not show any acute ischemic changes and patient did not have any symptoms suggestive of acute coronary syndrome. There is a mild rise in the troponin without any significant rise and fall and this is not suggestive of acute coronary syndrome. It could be secondary to supply and demand mismatch. Patient's proBNP level is normal. Patient's echocardiogram does not show any wall motion abnormality. Left ventricular systolic function is normal. Patient does carry increased risk of surgery at this age but there is no absolute contraindications. The risks and benefits were fully discussed with the family members and we can proceed with the surgery. We will recommend to monitor the patient's blood pressure and oxygen saturation very closely in the postop period.
[2017-04-11] MEDS ORDERED: PROPOFOL 10 MG/ML 20 ML VIAL IV ONE (10:33)
[2017-04-11] MEDS ORDERED: TRANEXAMIC ACID 1,000 MG/10 ML VIAL ONE (10:33)
[2017-04-11] MEDS ORDERED: SODIUM CHLORIDE 0.9% 100 ML BAG ONE (10:33)
[2017-04-11] MEDS ORDERED: ePHEDrine 50 MG/ML 1 ML AMP ONE (10:33)
[2017-04-11] MEDS ORDERED: ONDANSETRON 4 MG/2 ML VIAL ONE (10:33)
[2017-04-11] MEDS ORDERED: fentaNYL (PF) 50 MCG/ML 2 ML AMP ONE (10:33)
[2017-04-11] MEDS ORDERED: SODIUM CHLORIDE 0.9% 50 ML with CLINDAMYCIN 600 MG IV ONE ×2 (10:58)
[2017-04-11] MEDS ORDERED: TRANEXAMIC ACID 1,000 MG in SODIUM CHLORIDE 0.9% 100 ML IVPB ONE (11:14)
[2017-04-11] MEDS ORDERED: LACTATED RINGERS 1,000 ML IV ONE (11:23)
[2017-04-11] MEDS ORDERED: ceFAZolin 1,000 MG in SODIUM CHLORIDE 0.9% 1,000 ML IRRIGATION ONE (11:24)
--- NOTE | 2017-04-11 13:16 | XR ---
EXAMINATION TYPE: XR Hip Limited LT DATE OF EXAM: 04/11/2017 1:12 PM COMPARISON: NONE HISTORY: Postop left hip TECHNIQUE: One view submitted. FINDINGS: There is a prosthetic hip in near anatomic alignment. There is soft tissue edema and emphysema. IMPRESSION: 1. Postoperative change. Appears in near-anatomic alignment.
[2017-04-11] MEDS ORDERED: VANCOMYCIN 750 MG in SODIUM CHLORIDE 0.9% 250 ML IVPB ONE (14:30)
--- NOTE | 2017-04-11 15:32 | P.PN ---
Thang Is a pleasant 87-year-old lady patient of Dr. Parrish. She has underlying history of hypertension hypothyroidism with decreased hearing, who was previously well independent, lives at home on home, admitted emergency room after she tripped and had fallen in the sidewalk, patient was returning up pull we can when she tripped and fell the sidewalk landing on her left side. She sustained a left subcapital fracture involving left hip, minimal angulation and foreshortening no other pelvic structures noted We've requested EKG for perioperative clearance, EKG shows bundle branch block and inferior T-wave changes, BNP troponins were requested, imaging studies with chest x-ray showed pulmonary fibrotic changes with no active cardiopulmonary disease no change from previous patient clinically is asymptomatic with regards to heart, however this EKG is new compared to November 2016 in view of this, we' ve requested cardiology for preoperative clearance, were anticipating surgery on 04/11/2017 left hemiarthroplasty is recommended 04/11: Patient has been seen by cardiology and mild troponin elevation was not suggestive of acute coronary syndrome. ProBNP was normal. Echocardiogram did not show any wall motion abnormality. She was cleared for surgery by cardiology. Surgery scheduled for today. Blood pressure has been high for which lisinopril 20 mg has been added to amlodipine. We have started aspirin 325 mg twice daily for DVT prophylaxis. Patient is planning for [facility] or [facility] for subacute rehab and social work is following. Objective - Vital Signs Vital signs: Vital Signs Temp 97.8 F 04/11/17 12:16 Pulse 79 04/11/17 13:01 Resp 16 04/11/17 13:01 BP 163/70 04/11/17 13:01 Pulse Ox 93 L 04/11/17 13:01 Intake & Output 04/10/17 04/11/17 04/11/17 18:59 06:59 18:59 Intake Total 420 855 Output Total 2772 250 0100 Balance -1200 20 -195 Weight 50.126 kg 50.126 kg Intake: IV 420 855 Sodium Chloride 0.9% 1, 120 000 ml @ 20 mls/hr IV . Q24H MEL Rx#:[id number] Sodium Chloride 0.9% 1, 300 000 ml @ 50 mls/hr IV . Q20H MEL Rx#:[id number] Output: Urine 1200 400 450 Uretheral ([place]) 400 Estimated Blood Loss 600 Other: Voiding Method Indwelling Catheter Indwelling Catheter # Bowel Movements 1 - Exam General appearance: cooperative, no acute distress, thin - EENT Eyes: anicteric sclerae, edentulous, EOMI, PERRLA, normal appearance ENT: hearing grossly normal, NA/AT, normal oropharynx - Neck Neck: no lymphadenopathy, normal ROM, no other, no rigidity, no stridor, no thyromegaly - Respiratory Respiratory: bilateral: CTA, negative: dullness, rales, rhonchi, wheezing - Cardiovascular Rhythm: regular Heart sounds: normal: S1, S2 Abnormal Heart Sounds: no systolic murmur, no diastolic murmur, no rub, no S3 Gallop, no S4 Gallop, no click, no other - Gastrointestinal General gastrointestinal: normal bowel sounds, soft - Integumentary Integumentary: normal, normal turgor - Neurologic Neurologic: CNII-XII intact - Musculoskeletal Musculoskeletal: strength equal bilaterally - Psychiatric Psychiatric: A&O x's 3, appropriate affect, intact judgment & insight - Labs CBC & Chem 7: 04/09/17 17:10 04/09/17 17:10 Labs: Abnormal Lab Results - Last 24 Hours (Table) 04/10/17 04/10/17 04/11/17 Range/Units 15:44 19:47 01:34 Troponin I 0.105 H* 0.138 H* 0.129 H* (0.000-0.034) ng/mL Assessment and Plan Plan: 1. Acute left subcapital hip fracture after traumatic fall, patient currently would require a left hemiarthroplasty, cardiology is cleared for surgery. 2. Abnormal EKG with T-wave inversion inferior leads, new compared to previous Y 2016, cardiology was requested to see along with preoperative clearance 3. Hypertension currently stable on Norvasc 5 mg daily and lisinopril 20 g daily has been added 4. Hypothyroidism on Synthroid 50 g daily 5. GI prophylaxis and DVT prophylaxis, heparin 5000 units every 12 which would be given and held 12 hours prior to surgery, patient's on Protonix maintenance 6. Discharge planning anticipate discharge to skilled ECF. Social work is following. Impression and plan of care have been directed as dictated by the signing physician. Reyna Perera nurse practitioner acting as scribe for signing physician.
--- NOTE | 2017-04-11 15:42 | ECHOF ---
Referral Reason:LVF MEASUREMENTS -------- HEIGHT: 167.6 cm WEIGHT: 49.9 kg BP: 165/76 RVIDd: 2.6 cm (< 3.3) IVSd: 1.0 cm (0.6 - 1.1) LVIDd: 4.3 cm (3.9 - 5.3) LVPWd: 0.9 cm (0.6 - 1.1) IVSs: 1.6 cm LVIDs: 2.9 cm LVPWs: 1.4 cm LA Diam: 3.4 cm (2.7 - 3.8) LAESV Index (A-L): 19.57 ml/m Ao Diam: 3.2 cm (2.0 - 3.7) AV Cusp: 1.7 cm (1.5 - 2.6) MV EXCURSION: 12.451 mm (> 18.000) MV EF SLOPE: 42 mm/s (70 - 150) EPSS: 0.9 cm MV E Eliseo: 0.62 m/s MV DecT: 277 ms MV A Eliseo: 1.11 m/s MV E/A Ratio: 0.55 RAP: 5.00 mmHg RVSP: 30.01 mmHg FINDINGS -------- Sinus rhythm. This was a technically good study. The left ventricular size is normal. Left ventricular wall thickness is normal. Overall left ventricular systolic function is normal with, an EF between 60 - 65 %. The right ventricle is normal in size and function. Normal LA size by volume 22+/-6 ml/m2. The right atrium is normal in size. The aortic valve is trileaflet and appears structurally normal. The mitral valve leaflets are mildly thickened. There is trace to mild mitral regurgitation. Mild tricuspid regurgitation present. Right ventricular systolic pressure is normal at < 35 mmHg. The pulmonic valve is normal. The aortic root size is normal. Normal inferior vena cava with normal inspiratory collapse consistent with estimated right atrial pressure of 5 mmHg. The pericardium is normal. CONCLUSIONS -------- 1. Sinus rhythm. 2. The mitral valve leaflets are mildly thickened. 3. There is trace to mild mitral regurgitation. 4. Mild tricuspid regurgitation present. 5. Right ventricular systolic pressure is normal at < 35 mmHg. 6. The pulmonic valve is normal. 7. The aortic root size is normal. 8. Normal inferior vena cava with normal inspiratory collapse consistent with estimated right atrial pressure of 5 mmHg. 9. The pericardium is normal. 10. This was a technically good study. 11. The left ventricular size is normal. 12. Left ventricular wall thickness is normal. 13. Overall left ventricular systolic function is normal with, an EF between 60 - 65 %. 14. The right ventricle is normal in size and function. 15. Normal LA size by volume 22+/-6 ml/m2. 16. The right atrium is normal in size. 17. The aortic valve is trileaflet and appears structurally normal. SENIOR PROJECT ENGINEER: Pina Mcdaniel RDCS
[2017-04-11] MEDS: MULTIVITAMINS, THERA 1 EACH TAB PO SCH (16:27)
[2017-04-11] MEDS: LISINOPRIL 20 MG TAB PO SCH (16:27)
[2017-04-11] MEDS: SODIUM CHLORIDE 0.9% 1,000 ML IV SCH ×2 (18:19→22:35)
[2017-04-11] MEDS: SENNOSIDES-DOCUSATE SODIUM 1 EACH TAB PO SCH (20:20)
[2017-04-11] MEDS: ASPIRIN 325 MG TAB PO SCH (20:20)
[2017-04-12 07:23] LABS: Basophils % (A) 0 %; CH 31.6; CHCM 34.1; Eosinophils # (A) 0.3 k/uL (0-0.7); Eosinophils % (A) 4 %; HCT 31.1 % (34.0-46.0); HDW 2.29; HGB 10.5 gm/dL (11.4-16.0); Luc # (Auto) 0.05; Luc % (Auto) 1; Lymphocytes # (A) 0.4 k/uL (1.0-4.8); Lymphocytes % (A) 6 %; MCH 31.6 pg (25.0-35.0); MCHC 33.9 g/dL (31.0-37.0); MCV 93.1 fL (80.0-100.0); Mean Platelet Volume 6.5; Monocytes # (A) 0.4 k/uL (0-1.0); Monocytes % (A) 5 %; Neutrophils # (A) 5.8 k/uL (1.3-7.7); Neutrophils % (A) 84 %; RBC 3.34 m/uL (3.80-5.40); RDW 13.4 % (11.5-15.5); WBC 6.9 k/uL (3.8-10.6); WBC (Perox) 7.55
[2017-04-12] MEDS: LEVOTHYROXINE 50 MCG TAB PO SCH (08:37)
[2017-04-12] MEDS: PANTOPRAZOLE 40 MG TABLET PO SCH (08:37)
[2017-04-12] MEDS: LISINOPRIL 20 MG TAB PO SCH (08:37)
[2017-04-12] MEDS: amLODIPine 5 MG TAB PO SCH (08:37)
[2017-04-12] MEDS: HYDROcodone/APAP 5-325MG 1 EACH TAB PO PRN ×2 (09:00→15:30)
--- NOTE | 2017-04-12 10:33 | P.PN ---
Subjective Principal diagnosis: Status post left hip hemiarthroplasty for left subcapital fracture Patient is a very pleasant 87-year-old female who is seen and examined at bedside after undergoing a left hip hemiarthroplasty performed by Dr. Wyman yesterday, 04/11/2017. Postsurgically, patient has had improvement of her left hip pain. She does continue to have some postoperative pain at the surgical site. She's been eating and voiding without significant difficulty. She is not complaining of any abdominal pain. She currently denies any nausea, vomiting, fever, or chills. She has been able to ambulate to the restroom with the assistance of a walker. She currently has no new complaints. She's planning for discharge this coming Friday to rehab. Family states they would like her to be discharged to [facility]. Objective - Vital Signs Vital signs: Vital Signs Temp 97.9 F 04/12/17 08:30 Pulse 81 04/12/17 08:30 Resp 14 04/12/17 08:30 BP 154/70 04/12/17 08:30 Pulse Ox 97 04/12/17 08:30 Intake & Output 04/11/17 04/12/17 04/12/17 18:59 06:59 18:59 Intake Total 855 605 Output Total 1050 101 Balance -195 504 Weight 50.126 kg Intake: IV 855 125 Sodium Chloride 0.9% 1, 125 000 ml @ 50 mls/hr IV . Q20H [facility] Rx#:[id number] Oral 480 Output: Urine 450 100 Uretheral (Hobbs) 100 Stool 1 Estimated Blood Loss 600 Other: Voiding Method Indwelling Catheter Indwelling Catheter # Voids 1 - Exam Physical Exam Hip Hemiarthroplasty: Status post surgical day number 1 Patient is examined sitting bedside upright in a chair Patient is awake, alert, and oriented 3 Vital signs stable Good chest excursion with deep inspiration and expiration Abdomen soft nontender No signs or symptoms of DVT; no calf pain Lower extremity compression stockings in place bilaterally Dressing of the left hip is clean, dry, and intact; no erythema, purulence, or signs of infection Full range of motion of ankles bilaterally Dorsiflexion, plantarflexion, and extensor hallucis longus positive sustained bilaterally Neurovascularly intact bilateral lower extremities Capillary refill less than 2 seconds bilateral lower extremities - Labs CBC & Chem 7: 04/12/17 06:38 04/09/17 17:10 Labs: Abnormal Lab Results - Last 24 Hours (Table) 04/12/17 04/12/17 Range/Units 06:38 06:38 RBC 3.34 L (3.80-5.40) m/uL Hgb 10.5 L (11.4-16.0) gm/dL Hct 31.1 L (34.0-46.0) % Plt Count 131 L (150-450) k/uL Lymphocytes # 0.4 L (1.0-4.8) k/uL Creatine Kinase 406 H (30-135) U/L Assessment and Plan (1) S/P hip hemiarthroplasty Status: Acute (2) Left hip pain Status: Acute (3) Fall Status: Acute (4) Subcapital fracture of left hip Status: Acute Plan: Plan: 1. Patient may continue to weight-bear as tolerated on the left lower extremity ; patient may work with physical therapy to increase mobility and ambulation 2. Continue pain control 3. Medicine to continue following the patient for their other medical issues 4. Continue with with anticoagulation therapy; medicine to manage 5. We'll continue to follow the patient 6. Patient will remain in the hospital over the weekend with plans to discharge to rehab facility this coming Friday, patient and family would like to have the patient discharged to [facility] 7. Patient can follow-up with Dr. Wyman at [facility] in 2-3 weeks following discharge Time with Patient: Less than 30
[2017-04-12] MEDS: SODIUM CHLORIDE 0.9% 1,000 ML IV SCH ×2 (12:23→15:34)
[2017-04-12] MEDS: ASPIRIN 325 MG TAB PO SCH (12:24)
[2017-04-12] MEDS: MULTIVITAMINS, THERA 1 EACH TAB PO SCH (12:25)
[2017-04-12] MEDS: RIVAROXABAN 10 MG TAB PO SCH (12:25)
[2017-04-12] MEDS: ASPIRIN 81 MG CHEW PO SCH (14:23)
--- NOTE | 2017-04-12 15:00 | P.PN ---
Thang Is a pleasant 87-year-old lady patient of Dr. Parrish. She has underlying history of hypertension hypothyroidism with decreased hearing, who was previously well independent, lives at home on home, admitted emergency room after she tripped and had fallen in the sidewalk, patient was returning up pull we can when she tripped and fell the sidewalk landing on her left side. She sustained a left subcapital fracture involving left hip, minimal angulation and foreshortening no other pelvic structures noted We've requested EKG for perioperative clearance, EKG shows bundle branch block and inferior T-wave changes, BNP troponins were requested, imaging studies with chest x-ray showed pulmonary fibrotic changes with no active cardiopulmonary disease no change from previous patient clinically is asymptomatic with regards to heart, however this EKG is new compared to November 2016 in view of this, we' ve requested cardiology for preoperative clearance, were anticipating surgery on 04/11/2017 left hemiarthroplasty is recommended 04/11: Patient has been seen by cardiology and mild troponin elevation was not suggestive of acute coronary syndrome. ProBNP was normal. Echocardiogram did not show any wall motion abnormality. She was cleared for surgery by cardiology. Surgery scheduled for today. Blood pressure has been high for which lisinopril 20 mg has been added to amlodipine. We have started aspirin 325 mg twice daily for DVT prophylaxis. Patient is planning for [facility] or [facility] for subacute rehab and social work is following. Physical therapy still limited at this point patient pain is well control and doing well. With her current cardiology problem troponin was mildly elevated but still on medical management no need for any invasive testing. Objective - Vital Signs Vital signs: Vital Signs Temp 97.9 F 04/12/17 08:30 Pulse 81 04/12/17 08:30 Resp 14 04/12/17 08:30 BP 154/70 04/12/17 08:30 Pulse Ox 97 04/12/17 08:30 Intake & Output 04/11/17 04/12/17 04/12/17 18:59 06:59 18:59 Intake Total 855 605 Output Total 1050 201 Balance -195 404 Weight 50.126 kg Intake: IV 855 125 Sodium Chloride 0.9% 1, 125 000 ml @ 50 mls/hr IV . Q20H [facility] Rx#:[id number] Oral 480 Output: Urine 450 200 Uretheral (Hobbs) 200 Stool 1 Estimated Blood Loss 600 Other: Voiding Method Indwelling Catheter Indwelling Catheter Indwelling Catheter # Voids 1 - Constitutional General appearance: Present: cooperative, no acute distress. Absent: average body habitus, disheveled, mild distress, morbidly obese, obese, severe distress , thin - EENT Eyes: Present: normal appearance. Absent: abnormal pupil, anicteric sclerae, disc margins sharp, edentulous, EOMI, PERRLA, fundus normal, photophobia, dentition normal, poor dentition, ptosis, scleral icterus ENT: Present: hard of hearing, pharyngeal erythema. Absent: hearing grossly normal, NA/AT, normal oropharynx, other, thrush, tonsillar exudates, tonsillar swelling Ears: bilateral: normal - Neck Neck: Present: normal ROM. Absent: lymphadenopathy, other, rigidity, stridor, thyromegaly Carotids: bilateral: upstroke normal Thyroid: bilateral: normal size - Respiratory Respiratory: bilateral: CTA, diminished - Cardiovascular Rhythm: regular Heart sounds: normal: S1, S2 Abnormal Heart Sounds: Present: systolic murmur, S3 Gallop - Gastrointestinal General gastrointestinal: Present: decreased bowel sounds, soft. Absent: absent bowel sounds, distended, hepatomegaly, hyperactive bowel sounds, normal bowel sounds, organomegaly, rigid, scaphoid, splenomegaly, tenderness, umbilical hernia, ventral hernia - Integumentary Integumentary Comment(s): Right hip incision looks fine with no sign of hematoma Integumentary: Present: normal, pale. Absent: calor, cellulitis, cyanotic, decreased turgor, flushed, jaundiced, normal turgor, rash, ulcer - Neurologic Neurologic: Present: CNII-XII intact - Musculoskeletal Musculoskeletal: Present: generalized weakness - Psychiatric Psychiatric: Present: A&O x's 3, appropriate affect - Labs CBC & Chem 7: 04/12/17 06:38 04/09/17 17:10 Labs: Abnormal Lab Results - Last 24 Hours (Table) 04/12/17 04/12/17 Range/Units 06:38 06:38 RBC 3.34 L (3.80-5.40) m/uL Hgb 10.5 L (11.4-16.0) gm/dL Hct 31.1 L (34.0-46.0) % Plt Count 131 L (150-450) k/uL Lymphocytes # 0.4 L (1.0-4.8) k/uL Creatine Kinase 406 H (30-135) U/L Assessment and Plan Plan: 1. Acute left subcapital hip fracture after traumatic fall, patient currently would require a left hemiarthroplasty, cardiology is cleared for surgery. 2. Abnormal EKG with T-wave inversion inferior leads, new compared to previous EKG 2017, cardiology has been seen patient medication was adjusted no need for any invasive procedure. 3. Hypertension currently stable on Norvasc 5 mg daily and lisinopril 20 g daily has been added. Blood pressure is better controlled. 4. Hypothyroidism on Synthroid 50 g daily 5. GI prophylaxis and DVT prophylaxis, heparin 5000 units every 12 which would be given and held 12 hours prior to surgery, patient's on Protonix maintenance 6. Discharge planning anticipate discharge to skilled ECF. Social work is following.
[2017-04-12] MEDS: SENNOSIDES-DOCUSATE SODIUM 1 EACH TAB PO SCH (22:40)
[2017-04-13] MEDS: HYDROcodone/APAP 5-325MG 1 EACH TAB PO PRN (05:42)
[2017-04-13] MEDS: LEVOTHYROXINE 50 MCG TAB PO SCH (05:53)
[2017-04-13] MEDS: ACETAMINOPHEN TAB 325 MG TAB PO PRN ×2 (08:44→20:30)
[2017-04-13] MEDS: PANTOPRAZOLE 40 MG TABLET PO SCH (08:46)
[2017-04-13] MEDS: ASPIRIN 81 MG CHEW PO SCH (08:46)
[2017-04-13] MEDS: RIVAROXABAN 10 MG TAB PO SCH (08:46)
[2017-04-13] MEDS: MULTIVITAMINS, THERA 1 EACH TAB PO SCH (08:46)
[2017-04-13] MEDS: amLODIPine 5 MG TAB PO SCH (08:49)
[2017-04-13] MEDS: LISINOPRIL 20 MG TAB PO SCH ×2 (08:49→12:07)
--- NOTE | 2017-04-13 11:36 | P.PN ---
Subjective Principal diagnosis: Status post left hip hemiarthroplasty for left subcapital fracture Patient is a very pleasant 87-year-old female who is seen and examined at bedside after undergoing a left hip hemiarthroplasty performed by Dr. Wyman Friday04/11/2017. Postsurgically, patient has had improvement of her left hip pain. She does continue to have some postoperative pain at the surgical site. She's been eating and voiding without significant difficulty. She is not complaining of any abdominal pain. She currently denies any nausea, vomiting, fever, or chills. She has been able to ambulate to the restroom with the assistance of a walker. She has been experiencing some dizziness this morning. Nursing states her systolic blood pressure has been between 110-119. She has increased dizziness with ambulation. She continues to have some dizziness while sitting in a chair. We'll plan for medicine to continue following the patient for further evaluation for her new onset dizziness. Patient was discussed in detail case management. We are currently planning for discharge to rehab this coming 04/15/2017. Family states they would like her to be discharged to [facility]. Objective - Vital Signs Vital signs: Vital Signs Temp 98.6 F 04/13/17 07:00 Pulse 74 04/13/17 07:00 Resp 12 04/13/17 07:00 BP 145/71 04/13/17 07:00 Pulse Ox 98 04/13/17 07:00 Intake & Output 04/12/17 04/13/17 04/13/17 18:59 06:59 18:59 Intake Total 605 200 Output Total 301 750 Balance 304 -550 Intake: IV 125 Sodium Chloride 0.9% 1, 125 000 ml @ 50 mls/hr IV . Q20H [facility] Rx#:[id number] Oral 480 200 Output: Urine 300 750 Uretheral (Hobbs) 200 Stool 1 Other: Voiding Method Indwelling Catheter Toilet # Voids 1 3 1 - Exam Physical Exam Hip Hemiarthroplasty: Status post surgical day number 2 Patient is examined sitting bedside upright in a chair Patient is awake, alert, and oriented 3 Vital signs stable Good chest excursion with deep inspiration and expiration Abdomen soft nontender No signs or symptoms of DVT; no calf pain Lower extremity compression stockings in place bilaterally Dressing of the left hip is clean, dry, and intact; no erythema, purulence, or signs of infection Full range of motion of ankles bilaterally Dorsiflexion, plantarflexion, and extensor hallucis longus positive sustained bilaterally Neurovascularly intact bilateral lower extremities Capillary refill less than 2 seconds bilateral lower extremities - Labs CBC & Chem 7: 04/12/17 06:38 04/09/17 17:10 Labs: Abnormal Lab Results - Last 24 Hours (Table) 04/13/17 Range/Units 06:16 Creatine Kinase 467 H (30-135) U/L Assessment and Plan (1) S/P hip hemiarthroplasty Status: Acute (2) Left hip pain Status: Acute (3) Fall Status: Acute (4) Subcapital fracture of left hip Status: Acute Plan: Plan: 1. Patient may continue to weight-bear as tolerated on the left lower extremity ; patient may work with physical therapy to increase mobility and ambulation 2. Continue pain control 3. Medicine to continue following the patient for their other medical issues including further evaluation for new onset dizziness 4. Continue with with anticoagulation therapy; medicine to manage 5. We'll continue to follow the patient 6. Patient will remain in the hospital over the weekend with plans to discharge to rehab facility this coming Friday: Patient and family would like to have the patient discharged to [facility] 7. Patient can follow-up with Dr. Wyman at [facility] in 2-3 weeks following discharge Time with Patient: Less than 30
[2017-04-13] MEDS: SODIUM CHLORIDE 0.9% 1,000 ML IV SCH ×2 (11:45→11:46)
--- NOTE | 2017-04-13 14:14 | P.PN ---
Subjective Principal diagnosis: Left hip fracture post hemiarthroplasty, non-ST [place], hypertension, hypothyroidism , dizziness. Is a pleasant 87-year-old lady patient of Dr. Parrish. She has underlying history of hypertension hypothyroidism with decreased hearing, who was previously well independent, lives at home on home, admitted emergency room after she tripped and had fallen in the sidewalk, patient was returning up pull we can when she tripped and fell the sidewalk landing on her left side. She sustained a left subcapital fracture involving left hip, minimal angulation and foreshortening no other pelvic structures noted We've requested EKG for perioperative clearance, EKG shows bundle branch block and inferior T-wave changes, BNP troponins were requested, imaging studies with chest x-ray showed pulmonary fibrotic changes with no active cardiopulmonary disease no change from previous patient clinically is asymptomatic with regards to heart, however this EKG is new compared to November 2016 in view of this, we' ve requested cardiology for preoperative clearance, were anticipating surgery on 04/11/2017 left hemiarthroplasty is recommended 04/11: Patient has been seen by cardiology and mild troponin elevation was not suggestive of acute coronary syndrome. ProBNP was normal. Echocardiogram did not show any wall motion abnormality. She was cleared for surgery by cardiology. Surgery scheduled for today. Blood pressure has been high for which lisinopril 20 mg has been added to amlodipine. We have started aspirin 325 mg twice daily for DVT prophylaxis. Patient is planning for [facility] or [facility] for subacute rehab and social work is following. Physical therapy still limited at this point patient pain is well control and doing well. With her current cardiology problem troponin was mildly elevated but still on medical management no need for any invasive testing. 04/13/2017: Patient is doing much better when attempt to stand up and move she become slightly bit lightheaded and dizzy her blood pressure dropped down slightly her Norvasc and lisinopril were held initially lisinopril was continue afterward she is doing well shortly in the afternoon. Objective - Vital Signs Vital signs: Vital Signs Temp 98.6 F 04/13/17 07:00 Pulse 74 04/13/17 07:00 Resp 12 04/13/17 07:00 BP 145/71 04/13/17 07:00 Pulse Ox 98 04/13/17 07:00 Intake & Output 04/12/17 04/13/17 04/13/17 18:59 06:59 18:59 Intake Total 605 200 Output Total 301 750 Balance 304 -550 Intake: IV 125 Sodium Chloride 0.9% 1, 125 000 ml @ 50 mls/hr IV . Q20H [facility] Rx#:[id number] Oral 480 200 Output: Urine 300 750 Uretheral (Hobbs) 200 Stool 1 Other: Voiding Method Indwelling Catheter Toilet # Voids 1 3 1 - Constitutional General appearance: Present: cooperative, no acute distress. Absent: average body habitus, disheveled, mild distress, morbidly obese, obese, severe distress , thin - EENT Eyes: Present: normal appearance. Absent: abnormal pupil, anicteric sclerae, disc margins sharp, edentulous, EOMI, PERRLA, fundus normal, photophobia, dentition normal, poor dentition, ptosis, scleral icterus ENT: Present: pharyngeal erythema. Absent: hard of hearing, hearing grossly normal, NA/AT, normal oropharynx, other, thrush, tonsillar exudates, tonsillar swelling Ears: bilateral: normal - Neck Neck: Present: normal ROM. Absent: lymphadenopathy, other, rigidity, stridor, thyromegaly Carotids: bilateral: upstroke normal Thyroid: bilateral: normal size - Respiratory Respiratory: bilateral: CTA, diminished - Cardiovascular Rhythm: regular Heart sounds: normal: S1, S2 Abnormal Heart Sounds: Present: systolic murmur, S3 Gallop - Gastrointestinal General gastrointestinal: Present: decreased bowel sounds, normal bowel sounds. Absent: absent bowel sounds, distended, hepatomegaly, hyperactive bowel sounds , organomegaly, rigid, scaphoid, soft, splenomegaly, tenderness, umbilical hernia, ventral hernia - Integumentary Integumentary Comment(s): Incision looks fine hematoma bleeding on infection. Integumentary: Present: pale, rash. Absent: calor, cellulitis, cyanotic, decreased turgor, flushed, jaundiced, normal, normal turgor, ulcer - Neurologic Neurologic: Present: CNII-XII intact - Musculoskeletal Musculoskeletal: Present: gait normal, generalized weakness, strength equal bilaterally. Absent: right sided weakness, left sided weakness - Psychiatric Psychiatric: Present: A&O x's 3, appropriate affect - Labs CBC & Chem 7: 04/12/17 06:38 04/09/17 17:10 Labs: Abnormal Lab Results - Last 24 Hours (Table) 04/13/17 Range/Units 06:16 Creatine Kinase 467 H (30-135) U/L Assessment and Plan Plan: 1. Acute left hip fracture post fall: Post hemiarthroplasty of the left hip patient is doing well advance physical therapy. 2. Acute non-ST [place]: Patient seen cardiology still on medical management only with the current finding and her age the current surgery patient will remain on medical management no surgical intervention required this point. 3. Abnormal EKG with T-wave inversion inferior leads, new compared to previous EKG 2016, cardiology has been seen patient medication was adjusted no need for any invasive procedure. 4. Hypothyroidism on Synthroid 50 g daily 5. GI prophylaxis and DVT prophylaxis, heparin 5000 units every 12 which would be given and held 12 hours prior to surgery, patient's on Protonix maintenance 6. Hypertension currently stable on Norvasc 5 mg daily and lisinopril 20 g daily has been added. Blood pressure is better controlled. 7 discharge planning: Patient probably will be discharged to rehab on Friday.
[2017-04-13] MEDS: SENNOSIDES-DOCUSATE SODIUM 1 EACH TAB PO SCH (20:28)
[2017-04-14 01:18] VITALS: RESP 16
[2017-04-14] MEDS: ACETAMINOPHEN TAB 325 MG TAB PO PRN ×2 (03:53→15:41)
[2017-04-14] MEDS: LEVOTHYROXINE 50 MCG TAB PO SCH (05:42)
[2017-04-14 06:49] LABS: Basophils % (A) 0 %; CH 31.5; CHCM 34.3; Eosinophils # (A) 0.3 k/uL (0-0.7); Eosinophils % (A) 4 %; HCT 29.4 % (34.0-46.0); Luc % (Auto) 1; Lymphocytes # (A) 0.5 k/uL (1.0-4.8); Lymphocytes % (A) 8 %; MCH 31.3 pg (25.0-35.0); MCHC 33.9 g/dL (31.0-37.0); MCV 92.1 fL (80.0-100.0); Monocytes # (A) 0.3 k/uL (0-1.0); Monocytes % (A) 5 %; Neutrophils # (A) 5.8 k/uL (1.3-7.7); Neutrophils % (A) 83 %; RDW 13.3 % (11.5-15.5); WBC 7.1 k/uL (3.8-10.6); WBC (Perox) 7.17
[2017-04-14] MEDS: PANTOPRAZOLE 40 MG TABLET PO SCH (08:44)
[2017-04-14] MEDS: ASPIRIN 81 MG CHEW PO SCH (08:45)
[2017-04-14] MEDS: RIVAROXABAN 10 MG TAB PO SCH (08:45)
[2017-04-14] MEDS: LISINOPRIL 20 MG TAB PO SCH (08:45)
[2017-04-14] MEDS: amLODIPine 5 MG TAB PO SCH (08:45)
[2017-04-14] MEDS: MULTIVITAMINS, THERA 1 EACH TAB PO SCH (08:45)
--- NOTE | 2017-04-14 10:27 | P.PN ---
Subjective Principal diagnosis: Status post left hip hemiarthroplasty for left subcapital fracture Patient is a very pleasant 87-year-old female who is seen and examined at bedside after undergoing a left hip hemiarthroplasty performed by Dr. Wyman Friday04/11/2017. Postsurgically, patient has continued to have had improvement of her left hip pain. She does continue to have some postoperative pain at the surgical site. She's been eating and voiding without significant difficulty. She is not complaining of any abdominal pain. She currently denies any nausea, vomiting, fever, or chills. She was able to ambulate to the nurse's station this morning without significant difficulty. She is no longer experiencing any dizziness. She has noticed some bruising at the arch of her right foot near the base of the great toe. She is unsure if the injury was sustained at the time of her fall. She has been able to ambulate on the right lower extremity without significant pain. She is not experiencing significant swelling. She does not feel she currently needs further treatment or evaluation in regards to her right foot. Patient feels she is improving well and is ready for discharge. Patient was discussed in detail case management. We are currently planning for discharge to rehab this coming Friday, 2016. Family states [facility]. Objective - Vital Signs Vital signs: Vital Signs Temp 98.8 F 04/14/17 07:13 Pulse 75 04/14/17 07:13 Resp 16 04/14/17 07:13 BP 126/63 04/14/17 07:13 Pulse Ox 98 04/14/17 07:13 Intake & Output 04/13/17 04/14/17 04/14/17 18:59 06:59 18:59 Intake Total 440 Output Total 1 Balance -1 440 Intake: Oral 440 Output: Stool 1 Other: Voiding Method Toilet Toilet # Voids 1 1 1 # Bowel Movements 1 1 - Exam Physical Exam Hip Hemiarthroplasty: Status post surgical day number 3 Patient is examined sitting bedside upright in a chair Patient is awake, alert, and oriented 3 Vital signs stable Good chest excursion with deep inspiration and expiration Abdomen soft nontender No signs or symptoms of DVT; no calf pain Lower extremity compression stockings in place bilaterally Dressing of the left hip is clean, dry, and intact; no erythema, purulence, or signs of infection Full range of motion of ankles bilaterally Dorsiflexion, plantarflexion, and extensor hallucis longus positive sustained bilaterally Neurovascularly intact bilateral lower extremities Capillary refill less than 2 seconds bilateral lower extremities Evidence of some bruising over the right arch of the foot close to the base of the great toe No pain with palpation of the right foot, ankle, or toes No significant swelling of the right foot, ankle, or toes - Labs CBC & Chem 7: 04/14/17 06:28 04/09/17 17:10 Labs: Abnormal Lab Results - Last 24 Hours (Table) 04/14/17 Range/Units 06:28 RBC 3.20 L (3.80-5.40) m/uL Hgb 10.0 L (11.4-16.0) gm/dL Hct 29.4 L (34.0-46.0) % Lymphocytes # 0.5 L (1.0-4.8) k/uL Assessment and Plan (1) S/P hip hemiarthroplasty Status: Acute (2) Left hip pain Status: Acute (3) Fall Status: Acute (4) Subcapital fracture of left hip Status: Acute Plan: Plan: 1. Patient may continue to weight-bear as tolerated on the left lower extremity ; patient may work with physical therapy to increase mobility and ambulation 2. Continue pain control 3. Medicine to continue following the patient for their other medical issues 4. Continue with with anticoagulation therapy; medicine to manage 5. We'll continue to follow the patient 6. Patient will remain in the hospital over the weekend with plans to discharge to rehab facility this coming Friday: Patient and family would like to have the patient discharged to [facility] 7. Patient can follow-up with Dr. Wyman at [facility] in 2-3 weeks following discharge Time with Patient: Less than 30
[2017-04-14] MEDS: SODIUM CHLORIDE 0.9% 1,000 ML IV SCH ×2 (11:50)
--- NOTE | 2017-04-14 13:45 | P.PN ---
Subjective Principal diagnosis: Left hip fracture post hemiarthroplasty, non-ST IL, hypertension, hypothyroidism , dizziness. Is a pleasant 87-year-old lady patient of Dr. Parrish. She has underlying history of hypertension hypothyroidism with decreased hearing, who was previously well independent, lives at home on home, admitted emergency room after she tripped and had fallen in the sidewalk, patient was returning up pull we can when she tripped and fell the sidewalk landing on her left side. She sustained a left subcapital fracture involving left hip, minimal angulation and foreshortening no other pelvic structures noted We've requested EKG for perioperative clearance, EKG shows bundle branch block and inferior T-wave changes, BNP troponins were requested, imaging studies with chest x-ray showed pulmonary fibrotic changes with no active cardiopulmonary disease no change from previous patient clinically is asymptomatic with regards to heart, however this EKG is new compared to November 2016 in view of this, we' ve requested cardiology for preoperative clearance, were anticipating surgery on 04/11/2017 left hemiarthroplasty is recommended 04/11: Patient has been seen by cardiology and mild troponin elevation was not suggestive of acute coronary syndrome. ProBNP was normal. Echocardiogram did not show any wall motion abnormality. She was cleared for surgery by cardiology. Surgery scheduled for today. Blood pressure has been high for which lisinopril 20 mg has been added to amlodipine. We have started aspirin 325 mg twice daily for DVT prophylaxis. Patient is planning for [facility] or [facility] for subacute rehab and social work is following. Physical therapy still limited at this point patient pain is well control and doing well. With her current cardiology problem troponin was mildly elevated but still on medical management no need for any invasive testing. 04/13/2017: Patient is doing much better when attempt to stand up and move she become slightly bit lightheaded and dizzy her blood pressure dropped down slightly her Norvasc and lisinopril were held initially lisinopril was continue afterward she is doing well shortly in the afternoon. 04/14/2017: Patient is doing much better with physical therapy, pain is under control with no medication. Patient is feeling much better and prepare hopefully for discharge to rehab tomorrow. Objective - Vital Signs Vital signs: Vital Signs Temp 98.8 F 04/14/17 07:13 Pulse 75 04/14/17 07:13 Resp 16 04/14/17 07:13 BP 126/63 04/14/17 07:13 Pulse Ox 98 04/14/17 07:13 Intake & Output 04/13/17 04/14/17 04/14/17 18:59 06:59 18:59 Intake Total 440 Output Total 1 Balance -1 440 Intake: Oral 440 Output: Stool 1 Other: Voiding Method Toilet Toilet # Voids 1 1 1 # Bowel Movements 1 1 - Constitutional General appearance: Present: no acute distress. Absent: average body habitus, cooperative, disheveled, mild distress, morbidly obese, obese, severe distress, thin - EENT Eyes: Present: normal appearance. Absent: abnormal pupil, anicteric sclerae, disc margins sharp, edentulous, EOMI, PERRLA, fundus normal, photophobia, dentition normal, poor dentition, ptosis, scleral icterus ENT: Present: normal oropharynx. Absent: hard of hearing, hearing grossly normal, NA/AT, other, pharyngeal erythema, thrush, tonsillar exudates, tonsillar swelling Ears: bilateral: normal - Neck Neck: Present: normal ROM. Absent: lymphadenopathy, other, rigidity, stridor, thyromegaly Carotids: bilateral: upstroke normal, upstroke delayed Thyroid: bilateral: normal size - Respiratory Respiratory: bilateral: CTA, diminished - Cardiovascular Rhythm: irregularly irregular Heart sounds: normal: S1, S2 Abnormal Heart Sounds: Absent: systolic murmur, diastolic murmur, rub, S3 Gallop , S4 Gallop, click, other - Gastrointestinal General gastrointestinal: Present: decreased bowel sounds, normal bowel sounds, soft. Absent: absent bowel sounds, distended, hepatomegaly, hyperactive bowel sounds, organomegaly, rigid, scaphoid, splenomegaly, tenderness, umbilical hernia, ventral hernia - Integumentary Integumentary Comment(s): Left hip incision looks good with no sign of hemorrhage bleeding cellulitis or infection. No induration or drainage. Integumentary: Present: normal, pale, rash. Absent: calor, cellulitis, cyanotic , decreased turgor, flushed, jaundiced, normal turgor, ulcer - Neurologic Neurologic: Present: CNII-XII intact - Musculoskeletal Musculoskeletal: Present: gait normal, generalized weakness, strength equal bilaterally. Absent: right sided weakness, left sided weakness - Psychiatric Psychiatric: Present: A&O x's 3 - Labs CBC & Chem 7: 04/14/17 06:28 04/09/17 17:10 Labs: Abnormal Lab Results - Last 24 Hours (Table) 04/14/17 Range/Units 06:28 RBC 3.20 L (3.80-5.40) m/uL Hgb 10.0 L (11.4-16.0) gm/dL Hct 29.4 L (34.0-46.0) % Lymphocytes # 0.5 L (1.0-4.8) k/uL Assessment and Plan Plan: 1. Acute left hip fracture post fall: Post hemiarthroplasty of the left hip patient is doing well advance physical therapy. 2. Acute non-ST IL: Patient seen cardiology still on medical management only with the current finding and her age the current surgery patient will remain on medical management no surgical intervention required this point. 3. Abnormal EKG with T-wave inversion inferior leads, new compared to previous EKG 2016, cardiology has been seen patient medication was adjusted no need for any invasive procedure. 4. Hypothyroidism on Synthroid 50 g daily 5. GI prophylaxis and DVT prophylaxis, heparin 5000 units every 12 which would be given and held 12 hours prior to surgery, patient's on Protonix maintenance 6. Hypertension currently stable on Norvasc 5 mg daily and lisinopril 20 g daily has been added. Blood pressure is better controlled. 7 discharge planning: Patient probably will be discharged to rehab on Friday.
[2017-04-14] MEDS: SENNOSIDES-DOCUSATE SODIUM 1 EACH TAB PO SCH (20:13)
[2017-04-14] MEDS: HYDROcodone/APAP 5-325MG 1 EACH TAB PO PRN (20:16)
[2017-04-15 00:31] VITALS: TEMP 98
[2017-04-15] MEDS: SODIUM CHLORIDE 0.9% 1,000 ML IV SCH (04:10)
[2017-04-15] MEDS: LEVOTHYROXINE 50 MCG TAB PO SCH (06:20)
[2017-04-15 07:38] VITALS: BP 127/71; PULSE 66
[2017-04-15] MEDS: RIVAROXABAN 10 MG TAB PO SCH (07:42)
[2017-04-15] MEDS: ASPIRIN 81 MG CHEW PO SCH (07:42)
[2017-04-15] MEDS: MULTIVITAMINS, THERA 1 EACH TAB PO SCH (07:42)
[2017-04-15] MEDS: PANTOPRAZOLE 40 MG TABLET PO SCH (07:42)
[2017-04-15] MEDS: amLODIPine 5 MG TAB PO SCH (07:42)
[2017-04-15] MEDS: ACETAMINOPHEN TAB 325 MG TAB PO PRN (07:42)
[2017-04-15] MEDS: LISINOPRIL 20 MG TAB PO SCH (07:43)
--- NOTE | 2017-04-15 07:44 | P.DS ---
Providers Date of admission: 04/09/17 18:02 Expected date of discharge: 04/15/17 Attending physician: Serg Wyman Consults: 04/09/17 17:15 Consult Physician Routine Consulting Provider: Phillip Parrish Consult Reason/Comments: medical clearance Do you want consulting provider notified?: Yes 04/10/17 14:06 Consult Physician Routine Consulting Provider: Reid Ramos Consult Reason/Comments: preop clearance, t wave inversion inferior Do you want consulting provider notified?: Yes Primary care physician: Phillip Parrish - Discharge Diagnosis(es) (1) Fall Current Visit: Yes Status: Acute (2) Subcapital fracture of left hip Current Visit: Yes Status: Acute (3) S/P hip hemiarthroplasty Current Visit: Yes Status: Acute Hospital Course: This is an 87 year old female who presented to the hospital post fall at home and sustained a left hip fracture. The patient was cleared by medicine and cardiology for surgery. The patient underwent a left hip hemiarthroplasty on by Dr. Wyman. The procedure was performed without complication or sequelae. The patient is doing well postoperatively. Labs and vital signs are stable on the day of discharge. On the day of discharge the patient's hip incision is healing well. There is minimal erythema. There is no drainage noted at this time. There is minimal soft tissue swelling to the hip and thigh. The patient has full foot and ankle motion without difficulty or pain. Neurovascular status to the left lower extremity is intact. The patient is discharged to skilled rehab in good condition. See medication reconciliation for accurate list of discharge medications. Pertinent Studies: Laboratory Tests 04/14/17 06:28 WBC 7.1 RBC 3.20 L Hgb 10.0 L Hct 29.4 L Patient Condition at Discharge: Stable Plan - Discharge Summary New Discharge Prescriptions: HYDROcodone/APAP 5-325MG [[place] 5] 1 - 2 each PO Q4-6H PRN #90 tab PRN Reason: Pain Sennosides-Docusate Sodium [Senokot-S] 2 tab PO DAILY #30 tablet Discharge Medication List Aspirin 81 mg PO DAILY 10/29/14 [History] Levothyroxine Sodium [Synthroid] 50 mcg PO DAILY 10/29/14 [History] Omeprazole 40 mg PO AC-BRKFST 10/29/14 [History] amLODIPine BESYLATE [Norvasc] 5 mg PO DAILY 10/29/14 [History] HYDROcodone/APAP 5-325MG [[place] 5] 1 - 2 each PO Q4-6H PRN #90 tab 04/15/17 [Rx] Sennosides-Docusate Sodium [Senokot-S] 2 tab PO DAILY #30 tablet 04/15/17 [Rx] Follow up Appointment(s)/Referral(s): Phillip Parrish MD [Primary Care Provider] - 1-2 days Serg Wyman MD [STAFF PHYSICIAN] - 2 Weeks (Patient may follow-up with Dr. Wyman at [facility] in 2-3 weeks following discharge. ) Activity/Diet/Wound Care/Special Instructions: 1. Weight-bear as tolerated left lower extremity 2. Keep incision over the left hip clean, dry, and intact 3. Patient may shower without a dressing over the incision site if incision remains dry for 72 hours 4. Patient may apply ice for comfort over a decision as needed for him comfort 5. Patient may continue to ambulate with assistance of a walker as needed Discharge Disposition: TRANSFER TO SNF/ECF
--- NOTE | 2017-04-19 12:00 | P.PN ---
Subjective Is a pleasant 87-year-old lady patient of Dr. Parrish. She has underlying history of hypertension hypothyroidism with decreased hearing, who was previously well independent, lives at home on home, admitted emergency room after she tripped and had fallen in the sidewalk, patient was returning up pull we can when she tripped and fell the sidewalk landing on her left side. She sustained a left subcapital fracture involving left hip, minimal angulation and foreshortening no other pelvic structures noted We've requested EKG for perioperative clearance, EKG shows bundle branch block and inferior T-wave changes, BNP troponins were requested, imaging studies with chest x-ray showed pulmonary fibrotic changes with no active cardiopulmonary disease no change from previous patient clinically is asymptomatic with regards to heart, however this EKG is new compared to November 2016 in view of this, we' ve requested cardiology for preoperative clearance, were anticipating surgery on 04/11/2017 left hemiarthroplasty is recommended 04/11: Patient has been seen by cardiology and mild troponin elevation was not suggestive of acute coronary syndrome. ProBNP was normal. Echocardiogram did not show any wall motion abnormality. She was cleared for surgery by cardiology. Surgery scheduled for today. Blood pressure has been high for which lisinopril 20 mg has been added to amlodipine. We have started aspirin 325 mg twice daily for DVT prophylaxis. Patient is planning for [facility] or [facility] for subacute rehab and social work is following. Physical therapy still limited at this point patient pain is well control and doing well. With her current cardiology problem troponin was mildly elevated but still on medical management no need for any invasive testing. 04/13/2017: Patient is doing much better when attempt to stand up and move she become slightly bit lightheaded and dizzy her blood pressure dropped down slightly her Norvasc and lisinopril were held initially lisinopril was continue afterward she is doing well shortly in the afternoon. 04/14/2017: Patient is doing much better with physical therapy, pain is under control with no medication. Patient is feeling much better and prepare hopefully for discharge to rehab tomorrow. 04/15: Patient is being prepared for discharge today. She is on Xarelto for DVT prophylaxis and will require 31 more days. She will be going to [facility] for subacute rehab today in stable condition. Medication reconciliation completed. Objective - Vital Signs Vital signs: Vital Signs Temp 98.0 F 04/15/17 07:37 Pulse 66 04/15/17 07:37 Resp 16 04/15/17 07:37 BP 127/71 04/15/17 07:37 Pulse Ox 95 04/15/17 07:39 Intake & Output 04/14/17 04/15/17 04/15/17 18:59 06:59 18:59 Intake Total 320 Balance 320 Weight 50.126 kg Intake: Oral 320 Other: Voiding Method Toilet Toilet # Voids 4 2 1 # Bowel Movements 1 1 - Exam General appearance: cooperative, no acute distress, thin - EENT Eyes: anicteric sclerae, edentulous, EOMI, PERRLA, normal appearance ENT: hearing grossly normal, NA/AT, normal oropharynx - Neck Neck: no lymphadenopathy, normal ROM, no other, no rigidity, no stridor, no thyromegaly - Respiratory Respiratory: bilateral: CTA, negative: dullness, rales, rhonchi, wheezing - Cardiovascular Rhythm: regular Heart sounds: normal: S1, S2 Abnormal Heart Sounds: no systolic murmur, no diastolic murmur, no rub, no S3 Gallop, no S4 Gallop, no click, no other - Gastrointestinal General gastrointestinal: normal bowel sounds, soft - Integumentary Integumentary: normal, normal turgor - Neurologic Neurologic: CNII-XII intact - Musculoskeletal Musculoskeletal: strength equal bilaterally - Psychiatric Psychiatric: A&O x's 3, appropriate affect, intact judgment & insight - Labs CBC & Chem 7: 04/14/17 06:28 04/09/17 17:10 Assessment and Plan Plan: 1. Acute left subcapital hip fracture after traumatic fall, patient currently would require a left hemiarthroplasty, cardiology is cleared for surgery. 2. Abnormal EKG with T-wave inversion inferior leads, cardiology has ruled out acute coronary syndrome 3. Hypertension currently stable on Norvasc 5 mg daily and lisinopril 20 g daily has been added 4. Hypothyroidism on Synthroid 50 g daily 5. GI prophylaxis and DVT prophylaxis, Protonix and Xarelto 6. Discharge planning: [facility] Impression and plan of care have been directed as dictated by the signing physician. Reyna Perera nurse practitioner acting as scribe for signing physician.
--- NOTE | 2017-05-01 12:25 | P.OP ---
Date of Procedure: 04/11/17 Preoperative Diagnosis: Postoperative Diagnosis: Procedure(s) Performed: PREOPERATIVE DIAGNOSIS: Left hip femoral neck fracture POSTOPERATIVE DIAGNOSIS: Left hip femoral neck fracture OPERATION: Left hip cemented unipolar hemiarthroplasty (replacement of patient' s femoral head with metallic implant). ANESTHESIA: Spinal ESTIMATED BLOOD LOSS: 600 ml. ORTHOPEDIC ASSISTANT: Emma Weber PA-C (assistance with: patient positioning, retraction, exposure, hemostasis, leg positioning, implantation, irrigation, closure, dressing) COMPLICATIONS: None apparent. COMPONENTS IMPLANTED: Sandhya LDFx cemented femoral stem; unipolar femoral head; neck extension augments as needed. INDICATIONS: Mrs. Pratt is an 87-year-old female with a history of falling and sustaining a femoral neck fracture. I have recommended surgical treatment with a cemented unipolar hemiarthroplasty. I have discussed this procedure in detail and explained the potential risks and complications as being inclusive of , but not limited to: Bleeding, infection, scarring, discomfort, blood vessel and/or nerve damage, limb length inequality, gait disturbance, blood clot, pulmonary embolism, , and other risks. The consent form has been signed. PROCEDURE: After appropriate consent was obtained, the patient was taken to the operating room and placed in supine position. Anesthetic was administered and after confirmation of adequate anesthesia, the patient was placed into the lateral decubitus position with the affected side up. Care was taken to make sure that all pressure points were adequately padded and a Dawn hip positioner was utilized for positioning. The hip was prepped and draped in the usual aseptic fashion using a combination of Chloraprep and alcohol. [place] drape was used for the case and the patient received intravenous antibiotics prior to the incision. The incision was created directly over the greater trochanter and carried slightly posteriorly for a posterior approach to the hip. The incision was then deepened down to subcutaneous tissue and fascia morena. Fascia morena was split in line with the incision and split proximally along the fibers of the gluteus juanita. The underlying fibers of the muscle were teased apart using finger dissection and bleeding vessels were picked up and coagulated. Retractor was then placed posteriorly consisting of a blunt [place]. The short external rotators and capsule were exposed and good visualization of the attachment of the external rotators to the femur was established. The short external rotators and capsule were released using electrocautery from their femoral attachments. A hockey stick shaped incision was created in the capsule. Joint fluid and hemarthrosis was evacuated and the patient's hip was internally rotated to expose the fracture site. The femoral neck cut was created approximately 1 cm superior to the lesser trochanter using a reciprocating saw. The femoral head and neck fragment was removed and visualization and palpation of the acetabular vault showed intact hyaline cartilage with no bone exposure or significant degeneration. Attention was then directed back to the proximal femur. Retractors were placed around the proximal femur and box osteotome was used followed by canal finder and trochanteric reamer. Cylindrical reaming was performed. Progressive broaching was then performed starting with a #10 broach and progressing final size, in a position of 10-15 degrees anteversion. [place] anteversion was within 5 degrees of stem position. The final size broach had excellent fit and fill of the patient's metaphysis and diaphysis. Calcar planing was performed. Trial reduction was then performed starting with appropriately sized femoral head and various neck extensions to evaluate stability, limb length equality, and soft tissue tension. Once these parameters were satisfactory, the corresponding final components were then called for. Trial components were removed. The femoral canal was sized for the centralizer and cement plug. Once the cement plug had been inserted distal to the planned length of the femoral component, the canal was pulse lavaged and brushed to remove any unstable bone. It was then dried with a lap sponge. Cement was mixed under vacuum conditions to decrease porosity and inserted into a cement gun. Distal centralizer was placed onto the femoral component with a bit of cement. The cement was allowed to reach a slightly doughy consistency and then the canal was filled retrograde with the cement gun. Thumb pressurization was performed three times. The femoral component was then inserted with the previously determined degree of anteversion. Excess cement was removed before it hardened completely. The femoral head was then impacted onto the Ruiz taper. Blood and debris were removed from the acetabular socket and the hip was then reduced and checked for stability, limb length and soft tissue tension. These parameters were found to be satisfactory; the wound was then thoroughly irrigated with normal saline. Final hemostasis was obtained using electrocautery and IV tranexamic acid, 1 g given at the time of prepping and draping, and another 1 g given at the time of closure. Closure of the capsule was performed meticulously using #3 Vicryl suture. Four [id number] sutures were placed in the posterior capsule along with repair of the external rotators. The fascia morena was then repaired using combination of #3 Vicryl suture in interrupted fashion and Quill and running fashion. 2-0 Vicryl suture was used for the subcutaneous tissues and 3-0 Quill for the skin. Dermabond or Steri-Strips were then applied. The patient tolerated the procedure well. There were no complications and the wound bed was dry and there was no need for drain placement. Sterile dressing was then applied and the patient was carefully removed from the operating room table, placed on the stretcher and was taken to the recovery room in stable condition. Sponge and needle counts were correct. Implants: Indications for Procedure: Operative Findings: Description of Procedure:
== END 2017-04-15 14:20 | DRG 470 ==
LOC: EC 15:35 → 3SUR 18:02
PROVIDERS: ADMIT Orthopaedic Surgery; ATTEND Orthopaedic Surgery
PROC: 0SRS019 Replacement of Left Hip Joint, Femoral Surface with Metal Synthetic Substitute, Cemented, Open Approach (ICD-10-PCS; principal; 2017-04-11 09:50)
DX: S72.012A Unspecified intracapsular fracture of left femur, initial encounter for closed fracture (principal); I45.10 Unspecified right bundle-branch block; I10 Essential (primary) hypertension; M21.752 Unequal limb length (acquired), left femur; M21.052 Valgus deformity, not elsewhere classified, left hip; R94.31 Abnormal electrocardiogram [ECG] [EKG]; R74.8 Abnormal levels of other serum enzymes; R07.9 Chest pain, unspecified; R53.1 Weakness; E03.9 Hypothyroidism, unspecified; S50.312A Abrasion of left elbow, initial encounter; R42 Dizziness and giddiness; M19.90 Unspecified osteoarthritis, unspecified site; H91.90 Unspecified hearing loss, unspecified ear; Z71.3 Dietary counseling and surveillance; Z90.11 Acquired absence of right breast and nipple; Z90.49 Acquired absence of other specified parts of digestive tract; Z82.5 Family history of asthma and other chronic lower respiratory diseases; Z79.82 Long term (current) use of aspirin; Z79.899 Other long term (current) drug therapy; Z85.3 Personal history of malignant neoplasm of breast; Z88.0 Allergy status to penicillin; Z88.2 Allergy status to sulfonamides; Z82.49 Family history of ischemic heart disease and other diseases of the circulatory system; Z81.1 Family history of alcohol abuse and dependence; Z80.6 Family history of leukemia; Z80.0 Family history of malignant neoplasm of digestive organs; W10.1XXA Fall (on)(from) sidewalk curb, initial encounter; W01.0XXA Fall on same level from slipping, tripping and stumbling without subsequent striking against object, initial encounter; Y92.480 Sidewalk as the place of occurrence of the external cause
CPT/HCPCS: 36415; 71010; 73501; 73502; 80053; 81003; 82550; 83880; 84484; 85025; 85610; 85730; 86850; 86900; 86901; 88305; 88311; 93005; 93306; 94760; 99285

== ENCOUNTER 2017-06-13 15:05 | Emergency (ER) | payer MEDICARE, BC ==
[2017-06-13 15:35] VITALS: RESP 18
--- NOTE | 2017-06-13 16:57 | XR ---
EXAMINATION TYPE: XR knee complete RT DATE OF EXAM: 06/13/2017 COMPARISON: NONE HISTORY: 87-year-old female with fall and pain TECHNIQUE: 3 views FINDINGS: Mild anterior soft tissue swelling. Extensor mechanism is intact. Osteopenia without acute fracture o r dislocation seen. IMPRESSION: Mild anterior soft tissue swelling. No acute osseous abnormality or joint effusion seen.
--- NOTE | 2017-06-13 17:15 | CT ---
EXAMINATION TYPE: CT brain camila mijares con DATE OF EXAM: 06/13/2017 COMPARISON: CT brain 12/12/2016 HISTORY: 87-year-old female with fall today. Frontal injury. CT DLP: 1273.00 mGycm Automated exposure control for dose reduction was used. Technique: Examination of the head was done in axial plane without intravenous contrast. Coronal and sagittal reconstructions performed. CT of the cervical spine was obtained in axial plane without intravenous injection of contrast mater ial. Coronal and sagittal reformatted images were obtained from the axial views for evaluation of f ractures, spinal alignment and canal. FINDINGS: Head: There is no evidence of acute intracranial hemorrhage, acute ischemic changes, mass, mass-effect, or extra-axial fluid collection. There is no effacement of cerebral sulci or basal subarachnoid cister ns. There is no hydrocephalus. There is no midline shift. Solares-white matter distinction is preserv ed. Moderate generalized supratentorial volume loss with secondary mild prominence to the ventricular sys tem, similar to prior. Moderate to severe confluent white matter hypodensities suggest chronic small vessel ischemic disease. Paranasal sinuses and mastoid air cells are well pneumatized. Orbits and globes are intact. No calvar ial fracture. Cervical spine: No craniocervical junction abnormality, predental space widening, or prevertebral soft tissue swellin g. Marked degenerative changes about the C1 dens articulation. There is thickening in the region of the transverse ligament impressing on the ventral thecal sac but not compromising the spinal canal. Moderate to severe disc/endplate degenerative change at C5-C7 levels with disc osteophyte complex for mation. Multilevel facet and uncovertebral joint arthropathy with trace grade 1 retrolisthesis at C5-C6. Advanced degenerative changes are also present at the C1-C2 articulation. C5-C6, there is discussed by complex and trace retrolisthesis mildly narrowing the spinal canal. Variable mild foraminal stenoses, moderate on the right and C5-C6. Sagittal and coronal reformatted images confirm above findings. COMBINED IMPRESSION: 1. No acute intracranial abnormality seen. Similar moderate atrophy and confluent changes of chronic small vessel ischemic disease. 2. No acute fracture of the cervical spine. Trace degenerative grade 1 retrolisthesis at C5-C6. 3. Moderate spondylotic change. Additional marked degenerative changes at the C1 dens articulation as well as along the left greater than right C1-C2 lateral masses.
--- NOTE | 2017-06-13 17:54 | ED ---
General Adult HPI - General Chief complaint: Fall Stated complaint: Fall. Head Injury Time Seen by Provider: 06/13/17 15:54 Source: patient, family, RN notes reviewed Mode of arrival: wheelchair Limitations: no limitations - History of Present Illness Initial comments: 87-year-old female with history of hypertension, and hypothyroidism presents status post fall. Patient was going up the stairs and she tripped on the last step falling 40 hitting her for head. She denies chest pain or shortness of breath prior to the fall. No history of palpitations. Patient does have a mild frontal headache and pain over her nasal bridge. There is no loss of consciousness. Patient is not on any blood thinners. She believes her tetanus is up-to-date. She also complains of right knee pain status post fall, she has walked since the fall. Denies abdominal pain. Denies chest pain. Denies neck pain. - Related Data Home Medications Medication Instructions Recorded Confirmed Aspirin 81 mg PO DAILY 10/29/14 04/09/17 Levothyroxine Sodium [Synthroid] 50 mcg PO DAILY 10/29/14 04/09/17 Omeprazole 40 mg PO AC-BRKFST 10/29/14 04/09/17 amLODIPine BESYLATE [Norvasc] 5 mg PO DAILY 10/29/14 04/09/17 Previous Rx's Medication Instructions Recorded HYDROcodone/APAP 5-325MG [[place] 5] 1 - 2 each PO Q4-6H PRN #90 tab 04/15/17 Multivitamins, Thera [Multivitamin 1 each PO DAILY@1200 tab 04/15/17 (formulary)] Rivaroxaban [Xarelto] 10 mg PO W/BRKFST #31 tab 04/15/17 Sennosides-Docusate Sodium 2 tab PO DAILY #30 tablet 04/15/17 [Senokot-S] Allergies Allergy/AdvReac Type Severity Reaction Status Date / Time Penicillins Allergy Unknown Verified 04/09/17 16:39 Sulfa (Sulfonamide Allergy Rash/Hives Verified 04/09/17 16:39 Antibiotics) Review of Systems ROS Statement: Those systems with pertinent positive or pertinent negative responses have been documented in the HPI. ROS Other: All systems not noted in ROS Statement are negative. Past Medical History Past Medical History: Hypertension, Osteoarthritis (OA), Thyroid Disorder Additional Past Medical History / Comment(s): breast ca History of Any Multi-Drug Resistant Organisms: None Reported Past Surgical History: Appendectomy Additional Past Surgical History / Comment(s): right mastectomy Additional Past Anesthesia/Blood Transfusion Reaction / Comment(s): has a difficult time coming awake after sx Past Psychological History: No Psychological Hx Reported Smoking Status: Never smoker Past Alcohol Use History: None Reported Past Drug Use History: None Reported - Past Family History Father History Unknown: Yes (Ischemic bowel) Mother Family Medical History: No Reported History Brother(s) History Unknown: Yes (4 brothers, history off COPD heart disease, alcoholism, one brother with leukemia) Sister(s) History Unknown: Yes (6 sisters are one alive, has GI cancer, other for his has fractures of she processes CAD) Daughter(s) History Unknown: Yes (No children sawDrs.) General Exam Limitations: no limitations General appearance: alert, in no apparent distress Head exam: Present: atraumatic, normocephalic Eye exam: Present: normal appearance, PERRL, EOMI, other (Contusion and superficial abrasion over the nasal bridge. No periorbital ecchymosis). Absent : periorbital swelling, periorbital tenderness ENT exam: Present: normal exam, mucous membranes moist Neck exam: Present: normal inspection, full ROM. Absent: tenderness (No midline tenderness, no paraspinal muscle tenderness or spasm) Respiratory exam: Present: normal lung sounds bilaterally. Absent: respiratory distress, wheezes Cardiovascular Exam: Present: regular rate, normal rhythm GI/Abdominal exam: Present: soft. Absent: distended, tenderness Extremities exam: Present: full ROM, normal capillary refill, joint swelling ( Mild swelling of the anterior right knee with anterior ecchymosis, no effusion. Normal range of motion). Absent: pedal edema Neurological exam: Present: alert, oriented X3, CN II-XII intact. Absent: motor sensory deficit Psychiatric exam: Present: normal affect, normal mood Skin exam: Present: warm, dry. Absent: cyanosis, diaphoretic Course Vital Signs 06/13/17 06/13/17 06/13/17 15:34 18:01 18:12 Temperature 97 F L 97.8 F 97.8 F Pulse Rate 77 71 71 Respiratory 18 18 18 Rate Blood Pressure 167/76 148/68 148/68 O2 Sat by Pulse 98 94 L 94 L Oximetry Medical Decision Making - Medical Decision Making 87-year-old female presents status post mechanical fall with closed head injury , there is no loss of consciousness. Patient's only complaint is right knee pain and pain over her nasal bridge. No vision changes, no lightheadedness, patient denied palpitations or chest pain prior to the fall states she caught her foot on the step and fell forward. She denies neck pain. CT is obtained to evaluate internal hemorrhage, this is negative for any acute findings. CT of the cervical spine shows no acute fracture or subluxation. X-ray of the right knee is negative for fracture or dislocation. Patient is informed of the x-ray findings and is eager to be discharged. Patient will follow-up with her primary care physician Diagnosis: Closed head injury, nasal bone contusion, right knee contusion. Disposition Clinical Impression: Fall, Head contusion Disposition: HOME SELF-CARE Condition: Good Instructions: Fall Prevention for Older Adults (ED), Head Injury (ED) Referrals: Phillip Parrish MD [Primary Care Provider] - 1-2 days Time of Disposition: 17:54
[2017-06-13 18:01] VITALS: BP 148/68; PULSE 71; TEMP 97.8
== END 2017-06-13 18:12 | disposition home or self-care (01) ==
LOC: EC 15:05
DX: S00.93XA Contusion of unspecified part of head, initial encounter (principal); S00.33XA Contusion of nose, initial encounter; S80.01XA Contusion of right knee, initial encounter; Z88.0 Allergy status to penicillin; Z88.2 Allergy status to sulfonamides; W10.9XXA Fall (on) (from) unspecified stairs and steps, initial encounter
CPT/HCPCS: 70450; 72125; 99284